=== PATIENT | female | born 1985 | race Caucasian/White ===

== ENCOUNTER 2017-12-07 10:49 | Inpatient (IN) | payer BC ==
[2017-12-07] MEDS ORDERED: Ringers Lactate 1,000 ML IV PRN (11:04)
[2017-12-07] MEDS ORDERED: OXYTOCIN/LR 20 UNIT/1,000 ML BAG IV SCH ×2 (12:00→19:00)
[2017-12-07] MEDS ORDERED: Ringers Lactate 1,000 ML IV SCH (12:00)
[2017-12-07] MEDS ORDERED: BUTORPHANOL 1 MG/ML INJ IV ONE (12:18)
[2017-12-07] MEDS ORDERED: PROMETHAZINE 25 MG/ML VIAL IV PRN (12:19)
[2017-12-07 12:54] LABS: RPR Titer ND
[2017-12-07 13:01] LABS: Absolute Lymphocytes (CBC) 1.8 K/uL (0.7-4.9); Absolute Monocytes 0.5 K/uL (0.1-1.3); Absolute Neutrophil 5.6 K/uL (1.8-8.0); Basophils % 0.5 % (0-1.3); Eosinophils % 0.4 % (0-4.4); Hematocrit 35.7 % (36.0-45.0); Lymphocytes % 22.1 % (15.3-44.8); MCH 30.3 pg (27.0-35.0); MCV 88.4 fL (80-100); MPV 9.7 fL (7.6-11.3); Monocytes % 6.4 % (3.3-12.3); RBC Red Blood Cell Count 4.04 M/uL (3.86-4.86)
[2017-12-07 13:12] LABS: Urine Appearance CLOUDY; Urine Blood NEGATIVE (NEG); Urine Color DK YELLOW; Urine Glucose NEGATIVE (NEG); Urine Protein 1+ (NEG); Urine pH 6.5 (5.0-7.0)
[2017-12-07 13:19] VITALS: BMI 35.5
[2017-12-07 13:20] LABS: Urine Bilirubin NEGATIVE (NEG); Urine Microscopic Reflex ORDER UMIC
[2017-12-07 13:46] LABS: Calcium Oxalate Crystals- Ur MODERATE (NONE SEEN); Urine Bacteria <20 /HPF (<20); Urine Culture Reflex Order REFLEXED; Urine RBC <5 /HPF (NONE SEEN)
[2017-12-07] MEDS ORDERED: FENTANYL/BUPIVACAINE/NS/PF 200 MCG/100 ML BAG EP PRN (13:54)
[2017-12-07] MEDS ORDERED: BUPIVACAINE 0.25% PF 10 ML VIAL IV PRN (13:57)
[2017-12-07] MEDS ORDERED: FENTANYL CITR 100 MCG/2 ML IV ONE (14:00)
[2017-12-07] MEDS ORDERED: ROPIVACAINE HCL 20 ML ONE (14:16)
[2017-12-07] MEDS ORDERED: MAGNESIUM SULF/STERILE WATER 1,000 ML IV ONE (16:19)
[2017-12-07] MEDS ORDERED: LABETALOL HCL 100 MG/20 ML ONE (16:19)
[2017-12-07] MEDS ORDERED: LABETALOL 20 MG/4ML SYRINGE IV ONE (17:00)
[2017-12-07] MEDS ORDERED: MAGNESIUM SULF/STERILE WATER 1,000 ML IV SCH ×2 (17:00→19:00)
[2017-12-07] MEDS ORDERED: CARBOPROST TROME 250 MCG/ML IM ONE (17:50)
[2017-12-07] MEDS ORDERED: LIDOCAINE 2% INJ, 20 mL 0 ML ONE (17:50)
[2017-12-07] MEDS ORDERED: CARBOPROST TROME 250 MCG/ML IM PRN (18:22)
[2017-12-07] MEDS ORDERED: ONDANSETRON 4 MG (ODT) TAB PO PRN (18:22)
--- NOTE | 2017-12-07 18:24 | PREOPHP ---
Date of Admission: 12/07/2017 History Of Present Illness: Ms. Harding is a 32-year-old female, 2, para 1-0 -0-1, at 37 weeks gestation. She is admitted for induction of labor secondary to 37 week , gestational diabetes, and -induced hypertension. She was noted to have a blood pressure of 160/105 in the office with repeat after resting 157/88. She has been followed over the last 2-3 week s with increasing blood pressure and had been placed on rest and stopped working because of this and being monitored through Labor and Delivery as well as our office because of worsening PIH. She will be admitted for induction. She has had problems with a headache recently. She denies any visual danica nges. She denies any abdominal pain other than some contractions. Past Medical History: Please see record. Family History: Please see record. Review of Systems: She denies recent nausea or vomiting. She denies any breast lumps. Infant has been active. She den ies any vaginal bleeding or spotting or urine symptoms or bowel issues. Physical Examination: General: Reveals female in no apparent distress. Neck: Supple without adenopathy or thyromegaly. Lungs: Clear. Cardiac: Regular rate and rhythm without murmurs. Breasts: Not examined. Abdomen: Shows 37 cm fundal height, vertex presentation. heart tone is well heard. Pelvic: Cervix noted to be 3 cm, 60% effaced, vertex at -1 to -2 station. Extremities: Trace to 1+ lower extremity edema. Impression: A 37 weeks , gestational diabetes, and -induced hypertension. Plan: The patient will be admitted for delivery. SAY/LEE Voice ID: [id number]
--- NOTE | 2017-12-07 18:28 | P.BOP ---
Preoperative diagnosis: 37 wk preg, GDM, PIH Postoperative diagnosis: same Primary procedure: SCVD viable female infant Secondary procedure: repair first degree perineal laceration Estimated blood loss: Less than 300ml. Transferred to: Other (272) Condition: Good
[2017-12-07 22:36] LABS: RPR (Rapid Plasma Reagin) NON-REACT (NON-REACT)
[2017-12-07] MEDS: Oxycodone HCl/Acetaminophen 1 TAB TAB PO PRN (22:50)
[2017-12-08] MEDS: Oxycodone HCl/Acetaminophen 1 TAB TAB PO PRN ×4 (03:38→20:20)
[2017-12-08 05:34] LABS: Absolute Lymphocytes (CBC) 2.9 K/uL (0.7-4.9); Absolute Monocytes 0.9 K/uL (0.1-1.3); Absolute Neutrophil 8.4 K/uL (1.8-8.0); Basophils % 0.4 % (0-1.3); Eosinophils % 0.4 % (0-4.4); Hematocrit 36.5 % (36.0-45.0); Lymphocytes % 23.8 % (15.3-44.8); MCH 30.2 pg (27.0-35.0); MCV 89.5 fL (80-100); MPV 10.2 fL (7.6-11.3); Monocytes % 7.2 % (3.3-12.3); RBC Red Blood Cell Count 4.08 M/uL (3.86-4.86)
[2017-12-08] MEDS ORDERED: LABETALOL 20 MG/4ML SYRINGE IV ONE ×2 (15:09→16:00)
--- NOTE | 2017-12-08 15:25 | OP ---
Surgeon: Scott Burns MD Ms. Harding is a 32-year-old, , female, 2, para 1-0-0-1 at 37 weeks gestation, admitted for induction of labor secondary to 37 week , -induced hypertension, and gestational diabetes. She was noted to be 3 cm on admission, and after artificial rupture of membran es and Pitocin induction of labor, she had an epidural catheter placed. She had a first stage of lab or of approximately 4 hours, second stage of labor of 19 minutes. She delivered by spontaneous contr olled vaginal delivery an 8 pounds 3 ounce female infant. Cord around the neck x1 was noted. The in [place] delivered over a first degree perineal laceration, and after delayed cord clamping. The cord wa s clamped, cut, and the placed on mother's abdomen. The cord blood was obtained. The placent a was spontaneously expelled. Perineal laceration was repaired in the usual fashion with 3-0 Vicryl suture. The patient had epidural catheter placed early in her course of labor and received excellent benefit from this. Estimated total blood loss was less than 300 cc. The patient was placed on magn esium sulfate during her labor course and received 120 mg dose of labetalol IV for control of her blo od pressure. SAY/LEE Voice ID: [id number] Report ID: [id number]
[2017-12-08] MEDS: LABETALOL HCL 100 MG TAB PO SCH (16:15)
[2017-12-08] MEDS ORDERED: LABETALOL HCL 100 MG TAB ONE (16:15)
--- NOTE | 2017-12-08 16:15 | P.PN ---
Date of Service: 12/08/17 S-No headache, abdomen feels better. O-BP remains high, worse when sitting, platelet ct this am plus or minus stable , urine output excellent at 2-300ml/hr, no protein in urine since last night A-Hypertension P-Begin po Labetalol. November d/c Mg this evening since all but bp resolved.
[2017-12-08] MEDS ORDERED: Ringers Lactate 1,000 ML IV SCH (22:00)
[2017-12-09] MEDS: LABETALOL HCL 100 MG TAB PO SCH (04:20)
[2017-12-09 07:49] VITALS: BP 138/80; TEMP 98.1
[2017-12-09] MEDS: Oxycodone HCl/Acetaminophen 1 TAB TAB PO PRN (08:17)
[2017-12-09 13:31] LABS: HBsAG Nonreactive (Nonreactive)
== END 2017-12-09 11:10 | disposition home or self-care (01) | DRG 775 ==
LOC: 2ND-WC 12:13
PROVIDERS: ADMIT Specialist; ATTEND Specialist
PROC: 10E0XZZ Delivery of Products of Conception, External Approach (ICD-10-PCS; principal; 2017-12-07)
PROC: 10907ZC Drainage of Amniotic Fluid, Therapeutic from Products of Conception, Via Natural or Artificial Opening (ICD-10-PCS; 2017-12-07)
PROC: 0HQ9XZZ Repair Perineum Skin, External Approach (ICD-10-PCS; 2017-12-07)
DX: O13.4 Gestational [pregnancy-induced] hypertension without significant proteinuria, complicating childbirth (principal); O24.429 Gestational diabetes mellitus in childbirth, unspecified control; O69.81X0 Labor and delivery complicated by cord around neck, without compression, not applicable or unspecified; O70.0 First degree perineal laceration during delivery; Z3A.37 37 weeks gestation of pregnancy; Z37.0 Single live birth
CPT/HCPCS: 36415; 81003; 81015; 83735; 85025; 86592; 86901; 87086; 87088; 87340; J2590; J3010; J3475

== ENCOUNTER 2020-06-03 06:39 | Inpatient (IN) | payer BC ==
--- OUTSIDE RECORDS SUMMARY | 2020-06-03 06:41 | XMS REPORT | Continuity of Care Document ---
:1985 Author Organization [facility] t Address [address] [place] [address] Care Team Providers Name Role Phone Unavailable Unavailable Unavailable Payers Payer Name Policy Type Policy Number Effective Date Expiration Date S ource Problems This patient has no known problems. Allergies, Adverse Reactions, Alerts Allergy Allergy Status Severity Reaction(s) Onset Inactive Treating Comm ents Source Name Type Date Date Clinician [place] DA Active U 2018-07 [facility] ins 0-21 Clear 00:00: [address] Medications This patient has no known medications. Procedures This patient has no known procedures. Results Test Description Test Time Test Comments Results Result Comments Source COMPREHENSIVE METABOLIC PANEL 2019-05-02 04:29:00 Test Item Value Reference Range Interpretation Comme nts SODIUM (test code = NA) 141 mmol/L 134-147 N POTASSIUM (test code = K) 3.8 mmol/L 3.4-5.0 N CHLORIDE (test code = CL) 109 mmol/L 100-108 H CARBON DIOXIDE (test code = CO2) 26 mmol/L 21-32 N ANION GAP (test code = GAP) 6.0 GAP calc 4.0-15.0 N GLUCOSE (test code = GLU) 113 MG/DL 70-110 H BLOOD UREA NITROGEN (test code = BUN) 12 MG/DL 7-18 N GLOMERULAR FILTRATION RATE (test code = GFR) >=60 max estimate estG FR >60 CREATININE (test code = CREAT) 0.7 MG/DL 0.6-1.0 N TOTAL PROTEIN (test code = PROT) 6.7 G/DL 6.4-8.2 N ALBUMIN (test code = ALB) 3.5 G/DL 3.4-5.0 N GLOBULIN (test code = GLOB) 3.2 GM/dL ALBUMIN/GLOBULIN RATIO (test code = A/G) 1.1 RATIO 1.2-2.2 L CALCIUM (test code = CA) 8.3 MG/DL 8.5-10.1 L BILIRUBIN TOTAL (test code = BILT) 0.10 MG/DL 0.2-1.2 L SGOT/AST (test code = AST) 12 Unit/L 15-37 L SGPT/ALT (test code = ALT) 22 Unit/L 12-78 N ALKALINE PHOSPHATASE TOTAL (test code = ALKP) 64 Unit/L 45-117 N [id number] 04:29:00 Test Item Value Reference Range Interpretation Comments PHOSPHOROUS (test code = PHOS) 3.9 MG/DL 2.5-4.9 N [id number] 04:29:00 Test Item Value Reference Range Interpretation Comments MAGNESIUM (test code = MAG) 1.8 MG/DL 1.8-2.4 N T4 [id number] 04:29:00 Test Item Value Reference Range Interpretation Comments T4 FREE (test code = T4F) 0.91 NG/DL 0.89-1.76 N THYROID STIMULATING [id number] 04:29:00 Test Item Value Reference Range Interpretation Comments THYROID STIMULATING HORMONE 3.020 mcIU/ML 0.340-4.820 N (test code = TSH) [id number] 03:32:00 Test Item Value Reference Range Interpretation Comments TROPONIN-I (test < 0.015 NG/ML 0.000-0.045 N Negative: </= 0.045 code = TROPI) Positive: >/= 0.046 Correlation wit h serial results, other cardiac markers, and cl inical findings is nec essary to determine the c linical significance of this result. Quantit ative results using d ifferent methodologies s hould not be compared to one another as nume rical results may dara yby method. Completed by Nursing: NO- XR CHEST 1 [id number] 01:42:00 Name: MARINA JASSO [place] : 1985 Age/S: 34 / F [id number] [place] Unit #: [id number] Loc: [place] [address] Phys: Clement Callejas MD Acct: [id number] Dis Date: Status: ADM IN PHONE #: [phone] Exam Date: 05/02/2019 0135 FAX #: Reason: PALPITATIONS EXAMS: CPT: [id number] XR CHEST 1 V 65177 Fluoro Time: DAP (Gy m2): Air Kerma (mGy): LOCATION: Q15 HISTORY: 34-year-old female who presents with palpitations. COMMENT: A frontal chest radiog raph was obtained at the bedside at 1:27 a.m. The lungs are clear and well-aerated. The cardiac silhouette, elvis, and mediastinum are within normal limits. The skeleton is intact, and the surrounding soft tissues are unremarkable. Cardiac monitoring leads are present. IMPRESSION: Unremarkable portable examination of the chest. at 0142 Reported and signed by: Chavez Gorman M.D. CC: Evy CR; Clement Callejas MD PAGE 1 Signed Report Name: MARINA JASSO [place] : 1985 Age/S: 34 / F [id number] [place] [address] Unit #: [id number] Loc: [place] [address] Phys: Clement Callejas MD Acct: [id number] Dis Date: Status: ADM IN PHONE #: [phone] Exam Date: 05/02/2019 0135 FAX #: Reason: PALPITATIONS EXAMS: CPT: [id number] XR CHEST 1 V 19782 Fluoro Time: DAP (Gy m2): Air Kerma (mGy): <Continued> Technologist: Rodney Garcia RT(R); Ry Kincaid RT(R)(CT) Trnscb Date/Time: 05/02/2019(014) [id number] Orig Print D/T: S: 05/02/2019 (014) PAGE 2 Signed [id number] 00:22:00 Test Item Value Reference Range Interpretation Comments TROPONIN-I (test < 0.015 NG/ML 0.000-0.045 N Negative: </= 0.045 code = TROPI) Positive: >/= 0.046 Correlation wit h serial results, other cardiac markers, and cl inical findings is nec essary to determine the c linical significance of this result. Quantit ative results using d ifferent methodologies s hould not be compared to one another as nume rical results may dara yby method. Completed by Nursing: NO
--- NOTE | 2020-06-03 07:38 | P.PN ---
Date of Service: 06/03/20 AROM by placement of FSE, reactive FHT's, clear fluid noted. +SARS, will mask and gown all contacts. Mask on when others in room
[2020-06-03] MEDS ORDERED: Ringers Lactate 1,000 ML IV PRN (08:26)
[2020-06-03] MEDS ORDERED: BUTORPHANOL 1 MG/ML INJ IV PRN (08:26)
[2020-06-03] MEDS ORDERED: CARBOPROST TROME 250 MCG/ML IM PRN ×2 (08:26→13:02)
[2020-06-03] MEDS ORDERED: METHYLERGONOVINE 0.2MG/ML AMP IM PRN (08:26)
[2020-06-03] MEDS ORDERED: Ringers Lactate 1,000 ML IV SCH (09:00)
[2020-06-03] MEDS ORDERED: OXYTOCIN/LR 20 UNITS/1,000 ML BAG IV SCH (09:00)
[2020-06-03 09:26] LABS: Urine Appearance CLOUDY; Urine Bilirubin NEGATIVE (NEG); Urine Blood NEGATIVE (NEG); Urine Color YELLOW; Urine Glucose NEGATIVE (NEG); Urine Protein TRACE (NEG); Urine Specific Gravity 1.025 (1.005-1.030)
[2020-06-03 09:33] LABS: Urine Microscopic Reflex ORDER UMIC
[2020-06-03 09:36] LABS: Absolute Lymphocytes (CBC) 1.4 K/uL (0.7-4.9); Basophils % 0.4 % (0-1.3); Hematocrit 33.8 % (36.0-45.0); Lymphocytes % 20.6 % (15.3-44.8); MPV 10.5 fL (7.6-11.3); RBC Red Blood Cell Count 3.82 M/uL (3.86-4.86)
[2020-06-03 09:41] LABS: Urine Bacteria >50 /HPF (<20); Urine RBC <5 /HPF (NONE SEEN)
[2020-06-03] MEDS ORDERED: FENTANYL CITR 100 MCG/2 ML IV ONE (10:23)
[2020-06-03] MEDS ORDERED: BUPIVACAINE 0.25% PF 10 ML VIAL IJ PRN (10:23)
[2020-06-03] MEDS ORDERED: FENTANYL/BUPIVACAINE/NS/PF 200 MCG/100 ML BAG EP PRN (10:23)
[2020-06-03 12:22] VITALS: BMI 36.3
[2020-06-03] MEDS ORDERED: LIDOCAINE 1% MPF 30 ML VIAL ONE (12:50)
[2020-06-03] MEDS ORDERED: OXYTOCIN/LR 20 UNIT/1,000 ML BAG IV SCH (13:00)
[2020-06-03] MEDS ORDERED: ONDANSETRON 4 MG (ODT) TAB PO PRN (13:02)
[2020-06-03] MEDS ORDERED: ACETAMINOPHEN 500 MG TAB PO PRN (13:02)
--- NOTE | 2020-06-03 13:06 | P.BOP ---
Preoperative diagnosis: 38 wk , chronic htn. Postoperative diagnosis: same, delivery viable female infant Primary procedure: SCVD Secondary procedure: repair first degree perineal laceration Estimated blood loss: 100ml Anesthesia: epidural Complications: None Complications: Positive Covid Transferred to: Other (279) Condition: Good
[2020-06-03] MEDS: IBUPROFEN 600 MG TAB PO PRN (20:45)
[2020-06-03 22:51] LABS: RPR (Rapid Plasma Reagin) NON-REACT (NON-REACT)
[2020-06-04] MEDS ORDERED: Ringers Lactate 1,000 ML IV ONE (03:36)
[2020-06-04] MEDS: IBUPROFEN 600 MG TAB PO PRN ×3 (04:45→17:00)
--- NOTE | 2020-06-04 07:15 | P.PN ---
Date of Service: 06/04/20 No complaints, daughter with a little breathing difficulty with retractions, on nasal 02. Will get platelet ct. on mother's specimen drawn this am. Hct. stable. Will plan on keeping patient until tomorrow to monitor bp/platelets/baby condition. Discussed with pt. and .
[2020-06-04 07:34] LABS: MPV 10.4 fL (7.6-11.3)
[2020-06-04 08:01] LABS: Platelet Estimate ADEQ
[2020-06-04] MEDS ORDERED: METOPROLOL XL 50 MG TAB PO SCH (09:00)
--- NOTE | 2020-06-04 09:52 | PREOPHP ---
Date of Admission: 06/03/2020 History Of Present Illness: Ambar is a 35-year-old female, 4, para 2-0-1- 2 who will be 38 weeks gestation when admitted for induction of labor. She has been induced because of chronic hypertension, prior -induced hypertension x2 with prior pregnancies. She has bee n seen by me during this early , had been placed on baby aspirin from approximately 16 weeks to 36 weeks to help prevent recurrent -induced hypertension. She is admitted for induction of labor and delivery of the . Past Medical History: Please see record. Family History: Please see record. Review of Systems: She reports no recent cough, cold, fever, or chills. No recent nausea or vomiting. No breast knots or lumps. No bowel or bladder issues. Physical Examination: Neck: Supple without adenopathy or thyromegaly. Lungs: Clear. Cardiac: Regular rate and rhythm without murmurs. Breasts: Not examined. Abdomen: 36 cm fundal height. heart tones well heard in lower midline. Vertex presentation o n palpation. Pelvic: Cervix noted to be 2+ to 3 cm dilated, 50% effaced, vertex -1 to -2 station. Extremities: No cyanosis, clubbing, or edema. Vital Signs: Blood pressure today is 130/80. Laboratory Data: There is no protein or sugar on her urine dip test. Impression: 38-week , favorable cervix, prior -induced hypertension x2, chronic hy pertension. Plan: The patient will be admitted for induction of labor. Risks and benefits are discussed. She h as signed operative permit in my presence. SAY/LEE Voice ID: [id number]
[2020-06-05] MEDS: IBUPROFEN 600 MG TAB PO PRN
[2020-06-05 07:53] VITALS: BP 138/77; TEMP 97.6
[2020-06-06 04:52] LABS: HBsAG Nonreactive (Nonreactive)
--- NOTE | 2020-06-07 15:43 | DS ---
Date of Discharge: 06/05/2020 Hospital Course: Ms. Harding is a 35-year-old, , female, 4, para 2-0-1-2 at 3 8 weeks gestation, admitted for induction of labor secondary to chronic hypertension, prior -induced hypertension x2. She had an uneventful labor and delivery and delivered a viable male infan t with epidural anesthesia. She was dismissed on the second day, ambulatory, on a select diet with routine post vaginal delivery, activity restrictions, to be seen back in my office in [address] [place] [address]. Hospital stay was complicated by a positive COVID screening despite the patient being asymptomat ic. Other lab work included an admission hemoglobin and hematocrit of 11.9 and 33.8, dismissal of 33 .9, platelet count on admission was 109,000, but repeat the following day was 129,000, so there was n o significant decrease. Urine specimen appeared to be contaminated. There was only trace protein in her urine. RPR is nonreactive. Hepatitis B screen pending. She is dismissed to be seen back in my office in 6 weeks to monitor blood pressure at home, to report any persistent elevation. She was di smissed to continue taking metoprolol. She was on antepartum and to take her iron and vitam ins. MPG/MODL Voice ID: [id number] Report ID: [id number]
--- NOTE | 2020-07-08 06:09 | OP ---
Surgeon: Scott Burns MD Ms. Harding is a 35-year-old female, admitted at 39 weeks gestation for elective induction se condary to term , history of chronic hypertension. She had a first stage of labor 5 hours, second stage of labor 15 minutes delivered by spontaneous controlled vaginal delivery. An 8 pounds 4 ounces female , 8 and 9 after delayed cord clamping. The cord was clamped, cut, and inf ant placed on mother's upper abdomen. Cord blood was obtained. The placenta was spontaneously expel led and appeared to be intact. Intrauterine examination revealed no retained placental fragments. S he delivered with epidural anesthesia. Estimated total blood loss was less than 200 cc. SAY/LEE Voice ID: [id number] Report ID: [id number]
== END 2020-06-05 08:20 | disposition home or self-care (01) | DRG 805 ==
LOC: 2ND-WC 06:39
PROVIDERS: ADMIT Specialist; ATTEND Specialist
PROC: 10907ZC Drainage of Amniotic Fluid, Therapeutic from Products of Conception, Via Natural or Artificial Opening (ICD-10-PCS; principal; 2020-06-03)
PROC: 10E0XZZ Delivery of Products of Conception, External Approach (ICD-10-PCS; 2020-06-03)
PROC: 3E033VJ Introduction of Other Hormone into Peripheral Vein, Percutaneous Approach (ICD-10-PCS; 2020-06-03)
PROC: 4A1H7CZ Monitoring of Products of Conception, Cardiac Rate, Via Natural or Artificial Opening (ICD-10-PCS; 2020-06-03)
PROC: 10H073Z Insertion of Monitoring Electrode into Products of Conception, Via Natural or Artificial Opening (ICD-10-PCS; 2020-06-03)
PROC: 0HQ9XZZ Repair Perineum Skin, External Approach (ICD-10-PCS; 2020-06-03)
DX: O98.52 Other viral diseases complicating childbirth (principal); U07.1 COVID-19; Z37.0 Single live birth; O13.4 Gestational [pregnancy-induced] hypertension without significant proteinuria, complicating childbirth; O70.0 First degree perineal laceration during delivery; Z3A.38 38 weeks gestation of pregnancy
CPT/HCPCS: 36415; 81003; 81015; 85014; 85025; 85049; 86592; 86901; 87340; J0595; J2210; J2590; J3010; J7120; U0003

== ENCOUNTER 2021-10-04 08:26 | Emergency (ER) | payer BC ==
--- OUTSIDE RECORDS SUMMARY | 2021-10-04 08:30 | XMS REPORT | Continuity of Care Document ---
:1985 Author Organization [facility] t Address [address] [place] [address] Dr. Gabriel. [address] [place] [address] Care Team Providers Name Role Phone Kimberly Leroy MD Primary Care Physician EVELYN MARTELL Attending Clinician Unavailable Evelyn Martell MD Attending Clinician 2, Lab Attending Clinician Unavailable LAB90 Attending Clinician Unavailable Kimberly Leroy MD Attending Clinician Mata Attending Clinician Unavailable Mata Admitting Clinician Unavailable Payers Payer Name Policy Type Policy Number Effective Date Expiration Date S ource [employer] - [id number] 2020 00:00:00 OUT OF STATE BCBS 2 [id number] 2021 00:00:00 Problems Condition Condition Condition Status Onset Resolution Last Treating Co mments Source Name Details Category Date Date Treatment Clinician Date No known No known Disease Unive rs active active ity of problems problems [facility] Allergies, Adverse Reactions, Alerts Allergy Allergy Status Severity Reaction(s) Onset Inactive Treating Comm ents Source Name Type Date Date Clinician Penicill Propensi Active 2020-07 Patient Kelse y ins ty to 2-16 states Seybold adverse 00:00: her Mom reaction 00 is s allergic. She has never had a reaction Penicill DA Active U 2018-07 [facility] ins 0-21 Clear 00:00: [place] 00 [facility] NO KNOWN Drug Active Univers ALLERGIE Class ity of S [facility] Social History Social Habit Start Date Stop Date Quantity Comments Source History SDOH University o f Alcohol Frequency [place] [facility] History SDOH University o f Alcohol Std [place] [facility] Drinks [facility] History SDOH University o f Alcohol Binge [place] [facility] ASSERTION [facility] Exposure to Not sure University SARS-CoV-2 [facility] (event) Branch Alcohol intake 2021-07-10 2021-07-10 Ex-drinker [place] of 00:00:00 00:00:00 (finding) [facility] Alcohol Comment 2021-07-10 2021-07-10 occasional before Un iversity of 00:00:00 00:00:00 finding out was [facility] Sex Assigned At [birth year] Universit y of 00:00:00 00:00:00 [facility] Smoking Status Start Date Stop Date Source Never smoker [facility] Medications Ordered Filled Start Stop Current Ordering Indication Dosage Frequency Signature Comments Components Source Medication Medication Date Date Medication? Clinician (SIG) Name Name metoprolol 2020-07 Yes 50mg Take 50 mg U nivers succinate 2-18 by mouth it[place] of [place] 50 mg 24 [place] [facility] metoprolol 2020-07 Yes 50mg Take 50 mg U nivers succinate 2-18 by mouth ity of XL 50 mg 24 00:[place] [facility] metoprolol 2020-07 Yes 50mg Take 50 mg U nivers succinate 2-18 by mouth ity of XL 50 mg 24 00:[place] [facility] metoprolol 2020-07 Yes 50mg Take 50 mg U nivers succinate 2-18 by mouth ity of XL 50 mg 24 00:[place] [facility] Nitrofurant 2020-07 Yes [id number] 100mg Take 1 Iris oin Monohyd 2-16 capsule Seybo ld Macro 100 00:00: (100 mg MG oral 00 total) by Capsule mouth 2 times daily Naproxen 2020-07 Yes [id number] 500mg Take 1 K elsey 500 MG oral 2-16 tablet Seybol d Tablet 00:00: (500 mg 00 total) by mouth 2 times daily (with meals) Metoprolol 2020-07 Yes 50mg Take 50 mg K elsey Succinate 1-22 by mouth Seybol d 50 MG oral 00:00: daily TABLET SR 00 24 HR Immunizations Ordered Filled Immunization Date Status Comments Sourc e Immunization Name Name Influenza Virus 2021-07-10 Completed Universit y of Vaccine Quad IM, 00:00:00 [place] [facility] Preserv and ABX Branch Free 6 MO-64 YRS Influenza Virus 2021-07-10 Completed Universit y of Vaccine [place] IM, 00:00:00 [place] [facility] Preserv and ABX Branch Free 6 MO-64 YRS Influenza Virus 2021-07-10 Completed Universit y of Vaccine Quad IM, 00:00:00 [place] [facility] Preserv and ABX Branch Free 6 MO-64 YRS Influenza Virus 2021-07-10 Completed Universit y of Vaccine Quad IM, 00:00:00 [place] [facility] [place] Preserv and ABX Branch Free 6 MO-64 YRS Vital Signs Vital Name Observation Time Observation Value Comments Source Systolic blood pressure 2021-06-26 20:17:00 124 mm[Hg] Iris nAtony Diastolic blood 2021-06-26 20:17:00 78 mm[Hg] Jc Antnoy pressure Heart rate 2021-06-26 20:17:00 92 /min Iris banerjee Body temperature 2021-06-26 20:17:00 37.06 Denia Eva Antony Respiratory rate 2021-06-26 20:17:00 12 /min Eva Antony Body height 2021-06-26 20:17:00 180.3 cm Iris banerjee Body weight 2021-06-26 20:17:00 100.699 kg Iris banerjee BMI 2021-06-26 20:17:00 30.96 kg/m2 Iris banerjee Procedures Procedure Date / Time Performed Performing Clinician [facility] e CBC WITH DIFF 2021-07-10 21:48:00 Lg Martell [place] o f [facility] TOTAL BETA HCG ASSAY 2021-07-10 21:48:00 Lg Martell [facility] LS URINE 2021-06-26 21:19:00 Gianna Leroy Se TEST-LAB TEST Somogyi URINALYSIS NONAUTO W/O 2021-06-26 20:49:00 Gianna Leroy y Cassia SCOPE Somogyi Encounters Start End Encounter Admission Attending Care Care Encounter Source Date/Time Date/Time Type Type Clinicians Facility Department ID 2021-07-25 2021-07-25 Outpatient R LG MARTELL [facility] [id number] Univers 10:15:00 10:15:00 ity [facility] 2021-07-22 2021-07-22 Telephone Lg Martell [facility] [id number] Univers 00:00:00 00:00:00 Evelyn MCCLELLAN [id number] i ty [facility] 4.2.7.2.686 [place] [id number] Wy dical NAL [address] [facility] 2021-07-16 2021-07-16 Outpatient R LG MARTELL [facility] [id number] Univers 16:15:00 16:15:00 ity [facility] 2021-07-16 2021-07-16 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 2, Adc Lab [facility] [id number] Univers 16:15:00 16:15:00 Visit Joan Martelltremayne MCCLELLAN [id number] ity [facility] [id number] [id number] Wy dical NAL 353 [facility] 2021-07-14 2021-07-14 Outpatient R LG MARTELL [facility] [id number] Univers 16:30:00 16:30:00 ity [facility] 2021-07-14 2021-07-14 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 15:30:00 15:41:38 Visit Lg Martell Evelyn MCCLELLAN [id number] ity [facility] 4.2.7.2.686 Kietted jeong MIK [id number] Wy dical [address] 2021-07-10 2021-07-10 Outpatient R LG MARTELL [facility] [id number] [facility] 14:00:00 15:32:45 ity [facility] 2021-06-26 2021-06-26 Outpatient LAB90 IRIS KAUFFMAN [id number] Iris 15:30:00 15:30:00 Seybol d 2021-06-26 2021-06-26 Office Kelvin Leroy [id number] Iris 14:30:00 15:00:00 Visit Gianna Valderrama [id number] Se charmaine Racheldionte 1.2.7.2.686 [id number] 2020-05-29 2020-05-29 Outpatient Mata [facility]G [facility]G [id number] [place] 02:24:00 02:24:00 [facility] 2019-10-17 2019-10-17 Outpatient Mata MMG MMG [id number] [place] 12:52:00 12:52:00 [facility] Results Test Description Test Time Test Comments Results Result Comments Source HCG, QUANTITATIVE, 2021-07-10 23:23:35 Test Item Value Reference Range Interpretation Comme nts BETA HCG (test code = See_Comment [Auto mated message] The [id number]) system which ge nerated this result transmit jackie reference range : Non- fe male and male patients: <5 mIU/mL. The reference r denver was not used to interpr et this result as merline l/abnormal. MIL (test code = MIL) Gestational Age ?Range (mIU/mL) 1-10 ?Weeks ?[id number] Weeks ?72787-73110839-12 Weeks ?2134-53879262-46 Weeks ?7694-739255 Biotin has been reported to cause a negative bias, interpret results relative to patient's use of biotin. [facility] WITH [id number] 21:56:34 Test Item Value Reference Range Interpretation Comments WBC (test code = See_Comment [Automated 6690-2) message] The sy stem which generated this result transmitted reference range : 4.30 - 11.10 10*3/?L. The reference range was not used to interpret this result as normal/abnormal . RBC (test code = See_Comment [Automated 789-8) message] The sy stem which generated this result transmitted reference range : 3.93 - 5.25 10*6/?L. The reference range was not used to interpret this result as normal/abnormal . HGB (test code = 13.3 g/dL 11.6-15.0 718-7) HCT (test code = 38.6 % 35.7-45.2 4544-3) MCV (test code = 87.3 fL 80.6-95.5 787-2) MCH (test code = 30.1 pg 25.9-32.8 785-6) MCHC (test code = 34.5 g/dL 31.6-35.1 786-4) RDW-SD (test code = 37.5 fL 39.0-49.9 L 54171-3) RDW-CV (test code = 11.7 % 12.0-15.5 L 788-0) PLT (test code = See_Comment [Automated 777-3) message] The sy stem which generated this result transmitted reference range : 166 - 358 10*3/ ?L. The reference r denver was not used to interpret this result as normal/abnormal . MPV (test code = 10.7 fL 9.5-12.9 86494-9) NRBC/100 WBC (test See_Comment [Automat ed code = 9803381265) message] The system which generated this result transmitted reference range : 0.0 - 10.0 /100 WBCs. The refer ence range was not u sed to interpret th is result as normal/abnormal . NRBC x10^3 (test code <0.01 See_Comment [Auto mated = 7258279928) message] The s ystem which generated this result transmitted reference range : 10*3/?L. The reference range was not used to interpret this result as normal/abnormal . GRAN MAT (NEUT) % 59.0 % (test code = 770-8) IMM GRAN % (test code 0.50 % = 3505665018) LYMPH % (test code = 31.7 % 736-9) MONO % (test code = 6.0 % 5905-5) EOS % (test code = 2.0 % 713-8) BASO % (test code = 0.8 % 706-2) GRAN MAT x10^3(ANC) 5.09 10*3/uL 1.88-7.09 (test code = 4699153573) IMM GRAN x10^3 (test 0.04 10*3/uL 0.00-0.06 code = 8667026520) LYMPH x10^3 (test code 2.74 10*3/uL 1.32-3.29 = 731-0) MONO x10^3 (test code 0.52 10*3/uL 0.33-0.92 = 742-7) EOS x10^3 (test code = 0.17 10*3/uL 0.03-0.39 711-2) BASO x10^3 (test code 0.07 10*3/uL 0.01-0.07 = 704-7) Lab Interpretation Abnormal (test code = 28821-3) [facility] [id number] 21:21:53 Test Item Value Reference Range Interpretation Comments TEST (test code = 2106-3) Negative Iris SeyboldURINALYSIS NONAUTO W/O [id number] 20:49:00 Test Item Value Reference Range Interpretation Comments UD KETONES (test code = neg 5-160 012358) UD GLUCOSE (test code = neg 100-2000 888464) UD PROTEIN (test code = neg Trace - 2000 mg/dL 499428) UD LEUKOCYTES (test mod Trace - Large @ 2 code = 009509) min. UD NITRITE (test code = neg Neg. - Pos. @ 60 908268) sec. UD UROBILINOGEN (test 0.2 mg/dL 0.2-8 code = 849879) UD PH (test code = See_Comment [Automat ed 821149) message] The sy stem which generated this result transmitted reference range : 5.0 - 8.5 @ 60 sec.. The refer ence range was not u sed to interpret th is result as normal/abnormal . UD BLOOD (test code = neg Neg. - Large @ 60 298750) sec. UD SPECIFIC GRAVITY See_Comment [Automa jackie (test code = 506090) message ] The system which generated this result transmitted reference range : 1.000 - 1.030 @ 45 sec.. The refer ence range was not u sed to interpret th is result as normal/abnormal . UD BILIRUBIN (test code neg Neg. - Large @ 45 = 461678) sec. Lab Interpretation Abnormal (test code = 77951-1) Iris AntonyCOMPREHENSIVE METABOLIC [id number] 04:29:00 Test Item Value Reference Range Interpretation Comments SODIUM (test code = NA) 141 mmol/L 134-147 N POTASSIUM (test code = 3.8 mmol/L 3.4-5.0 N K) CHLORIDE (test code = 109 mmol/L 100-108 H CL) CARBON DIOXIDE (test 26 mmol/L 21-32 N code = CO2) ANION GAP (test code = 6.0 GAP calc 4.0-15.0 N GAP) GLUCOSE (test code = 113 MG/DL 70-110 H GLU) BLOOD UREA NITROGEN 12 MG/DL 7-18 N (test code = BUN) GLOMERULAR FILTRATION >=60 max estimate >60 RATE (test code = GFR) estGFR CREATININE (test code = 0.7 MG/DL 0.6-1.0 N CREAT) TOTAL PROTEIN (test code 6.7 G/DL 6.4-8.2 N = PROT) ALBUMIN (test code = 3.5 G/DL 3.4-5.0 N ALB) GLOBULIN (test code = 3.2 GM/dL GLOB) ALBUMIN/GLOBULIN RATIO 1.1 RATIO 1.2-2.2 L (test code = A/G) CALCIUM (test code = CA) 8.3 MG/DL 8.5-10.1 L BILIRUBIN TOTAL (test 0.10 MG/DL 0.2-1.2 L code = BILT) SGOT/AST (test code = 12 Unit/L 15-37 L AST) SGPT/ALT (test code = 22 Unit/L 12-78 N ALT) ALKALINE PHOSPHATASE 64 Unit/L 45-117 N TOTAL (test code = ALKP) [id number] 04:29:00 Test Item Value Reference Range Interpretation Comments PHOSPHOROUS (test code = PHOS) 3.9 MG/DL 2.5-4.9 N [id number] 04:29:00 Test Item Value Reference Range Interpretation Comments MAGNESIUM (test code = MAG) 1.8 MG/DL 1.8-2.4 N T4 [id number] 04:29:00 Test Item Value Reference Range Interpretation Comments T4 FREE (test code = T4F) 0.91 NG/DL 0.89-1.76 N THYROID STIMULATING [id number] 04:29:00 Test Item Value Reference Range Interpretation Comments THYROID STIMULATING HORMONE 3.020 mcIU/ML 0.340-4.820 N (test code = TSH) [id number] 03:32:00 Test Item Value Reference Range Interpretation [...] Completed by Nursing: NO- XR CHEST 1 [id number] 01:42:00 Name: MARINA JASSO [facility] : 1985 Age/S: 34 / F [address] Unit #: [id number] Loc: [place] [address] Phys: Clement Callejas MD Acct: [id number] Dis Date: Status: ADM IN PHONE #: [phone] Exam Date: 05/02/2019 0135 FAX #: Reason: PALPITATIONS EXAMS: CPT: [id number] XR CHEST 1 V 74443 Fluoro Time: DAP (Gy m2): Air Kerma [...] MD PAGE 1 Signed Report Name: MARINA JASS[place]land : 1985 Age/S: 34 / F [address] Unit #: [id number] Loc: [place] [address] Phys: Clement Callejas MD Acct: [id number] Dis Date: Status: ADM IN PHONE #: [phone] Exam Date: 05/02/2019 0135 FAX #: Reason: PALPITATIONS EXAMS: CPT: [id number] XR CHEST 1 V 52929 Fluoro Time: DAP (Gy m2): Air Kerma (mGy): <Continued> Technologist: Rodney Garcia RT(R); Ry Kincaid RT(R)(CT) Trnscb Date/Time: 05/02/2019(014) [email or web address] Orig Print D/T: S: 05/02/2019 (014) PAGE 2 Signed [id number] 00:22:00 Test Item Value Reference Range Interpretation [...]
[2021-10-04 09:10] LABS: Urine Blood Negative (Negative); Urine Glucose Negative (Negative); Urine Protein Negative (Negative)
[2021-10-04 09:32] LABS: Urine Bacteria 20-50 /HPF (<20); Urine RBC <5 /HPF (NONE SEEN)
[2021-10-04] MEDS ORDERED: ACETAMINOPHEN 325 MG TABLET ONE (10:26)
[2021-10-04] MEDS ORDERED: CEFTRIAXONE 1000 MG/VIAL ONE (10:42)
[2021-10-04] MEDS ORDERED: WATER FOR INJ,STERILE 10 ML ONE (10:43)
--- NOTE | 2021-10-04 11:10 | ER ---
Nurse's Notes [facility] Name: Ambar Harding Age: 36 yrs Sex: Female : 1985 Arrival Date: 10/04/2021 Time: 08:31 Bed 6 Private MD: Diagnosis: UTI/ Urinary tract infection, site not specified Presentation: 10/04 08:53 Chief complaint: Patient states: is approx 18 weeks , G5, P3, woke up with left iw flank pain, wraps around LLQ, pain worsens when taking a deep breath, sometimes has pain into her left lung. Coronavirus screen: At this time, the client does not indicate any symptoms associated with coronavirus-19. Ebola Screen: Patient negative for fever greater than or equal to 101.5 degrees Fahrenheit, and additional compatible Ebola Virus Disease symptoms Patient denies exposure to infectious person. Patient denies travel to an Ebola-affected area in the 21 days before illness onset. No symptoms or risks identified at this time. Initial Sepsis Screen: Does the patient meet any 2 criteria? HR > 90 bpm. Does the patient have a suspected source of infection? No. Patient's initial sepsis screen is negative. Risk Assessment: Do you want to hurt yourself or someone else? Patient reports no desire to harm self or others. Onset of symptoms was October 04, 2021. 08:53 Method Of Arrival: Ambulatory iw 08:53 Acuity: DEAN 3 iw Historical: - Allergies: 08:47 PENICILLINS; ph - Home Meds: 08:56 Vitamin Oral tab 1 tab once daily [Active]; aspirin 81 mg Oral tab daily iw [Active]; metoprolol tartrate 75 mg Oral tab once daily [Active]; - PMHx: 08:47 gestational diabetes; ph 08:56 mitral valve prolapse; iw - PSHx: 08:56 right knee; iw - Immunization history:: Client reports receiving the 1st dose of the Covid vaccine. - Social history:: Smoking status: Patient denies any tobacco usage or history of. Screenin:15 Abuse screen: Denies threats or abuse. Denies injuries from another. Nutritional ph screening: No deficits noted. Tuberculosis screening: No symptoms or risk factors identified. Fall Risk None identified. Assessment: 09:30 General: Appears in no apparent distress. Behavior is calm, cooperative, appropriate ph for age, Denies fever. 09:30 Pain: Complains of pain in left lower quadrant and left mid back. Neuro: Level of ph Consciousness is awake, alert, obeys commands, Oriented to person, place, time, situation. Cardiovascular: Capillary refill < 3 seconds in bilateral fingers Patient's skin is warm and dry. Respiratory: Airway is patent Respiratory effort is even, unlabored, Respiratory pattern is regular, symmetrical. GI: Abdomen is round Abd is soft X 4 quads. : Reports pain in left lower quadrant(s) in lower back with urination, urinary frequency. Derm: Skin is intact, is healthy with good turgor, Skin is pink, warm \T\ dry. Musculoskeletal: Circulation, motion, and sensation intact. Range of motion: intact in all extremities. 10:30 Reassessment: Patient appears in no apparent distress at this time. Patient and/or ph family updated on plan of care and expected duration. Pain level reassessed. Patient is alert, oriented x 3, equal unlabored respirations, skin warm/dry/pink. 11:26 Reassessment: Patient appears in no apparent distress at this time. Patient and/or ph family updated on plan of care and expected duration. Pain level reassessed. Patient is alert, oriented x 3, equal unlabored respirations, skin warm/dry/pink. D/C pending 15 minute shot time. Vital Signs: 08:53 BP 132 / 88; Pulse 112; Resp 18 S; Temp 96.9; Pulse Ox 99% on R/A; Weight 104.33 kg; iw Height 5 ft. 11 in. (180.34 cm); Pain 5/10; 10:00 BP 126 / 87; Pulse 101; Resp 18; Pulse Ox 98% on R/A; ph 11:00 BP 118 / 78; Pulse 91; Resp 16; Temp 97.9; Pulse Ox 100% on R/A; ph 12:00 BP 120 / 76; Pulse 88; Resp 16; Pulse Ox 98% on R/A; ph 08:53 Body Mass Index 32.08 (104.33 kg, 180.34 cm) iw Vitals: 10:32 Heart Tones 160 bpm. ph ED Course: 08:31 Patient arrived in ED. rg4 08:47 Rosalia Chisholm, STUART is Primary Nurse. ph 08:48 Fercho Palma NP is PHCP. pm1 08:48 Kraig Buck MD is Attending Physician. pm1 08:56 Triage completed. iw 08:56 Arm band placed on. iw 09:15 Patient has correct armband on for positive identification. Bed in low position. Call ph light in reach. Side rails up X 1. Pulse ox on. NIBP on. 09:15 Urine --Ancillary (enter results) Sent. 5 09:15 Urine Microscopic Only Sent. 5 09:17 Warm blanket given. 5 10:23 Urine Culture Sent. 5 12:17 No provider procedures requiring assistance completed. Patient did not have IV access ph during this emergency room visit. Administered Medications: 10:31 Drug: Tylenol 650 mg Route: PO; 6 11:26 Follow up: Response: No adverse reaction ph 11:26 Drug: Rocephin (cefTRIAXone) 1 grams Route: IM; Site: left deltoid; ph 13:00 Follow up: Response: No adverse reaction ph Outcome: 11:10 Discharge ordered by MD. pm1 12:17 Patient left the ED. ph 12:17 Discharged to home ambulatory. ph 12:17 Condition: good 12:17 Discharge instructions given to patient, Instructed on discharge instructions, follow up and referral plans. medication usage, Demonstrated understanding of instructions, follow-up care, medications, Prescriptions given X 1. Signatures: Rosemarie Quintanilla RN RN Rosalia Chisholm RN RN Fercho Palma NP AUTOMATIC EQUIPMENT TECHNICIAN pm1 Caitlyn Bañuelos 4 Qing [facility] Zulema Orona RN RN 6 Corrections: (The following items were deleted from the chart) 19:20 09:30 General: Appears in no apparent distress. Behavior is calm, cooperative, ph appropriate for age, ph
--- NOTE | 2021-10-04 11:10 | EDPHYS ---
Physician Documentation [facility] [place], [place] Name: Ambar Harding Age: 36 yrs Sex: Female : 1985 Arrival Date: 10/04/2021 Time: 08:31 Bed 6 Private MD: Kraig Vicente HPI: 10/04 09:17 This 36 yrs old Female presents to ER via Ambulatory with complaints of Back Pain, 18 pm1 Weeks . 09:17 The patient complains of pain in the left mid back. The pain radiates to the left lower pm1 quadrant. Onset: The symptoms/episode began/occurred today. Modifying factors: The symptoms are alleviated by nothing. the symptoms are aggravated by nothing. Associated signs and symptoms: The patient has no apparent associated signs or symptoms, Pertinent negatives: diarrhea, dysuria, fever, nausea, vomiting. Severity of pain: in the emergency department the pain is unchanged. The patient has not experienced similar symptoms in the past. The patient has not recently seen a physician, Patient with IUP ultrasound from her it trainer. Historical: - Allergies: 08:47 PENICILLINS; ph - Home Meds: 08:56 Vitamin Oral tab 1 tab once daily [Active]; aspirin 81 mg Oral tab daily iw [Active]; metoprolol tartrate 75 mg Oral tab once daily [Active]; - PMHx: 08:47 gestational diabetes; ph 08:56 mitral valve prolapse; iw - PSHx: 08:56 right knee; iw - Immunization history:: Client reports receiving the 1st dose of the Covid vaccine. - Social history:: Smoking status: Patient denies any tobacco usage or history of. ROS: 09:17 Constitutional: Negative for fever, chills, and weight loss, Cardiovascular: Negative pm1 for chest pain, palpitations, and edema, Respiratory: Negative for shortness of breath, cough, wheezing, and pleuritic chest pain. 09:17 : Negative for injury, bleeding, discharge, and swelling, MS/Extremity: Negative for injury and deformity, Skin: Negative for injury, rash, and discoloration, Neuro: Negative for headache, weakness, numbness, tingling, and seizure. 09:17 Abdomen/GI: Positive for of the left lower quadrant, Pain, Negative for nausea, vomiting, and diarrhea. 09:17 Back: Positive for flank pain, on the left. 09:17 All other systems are negative. Exam: 09:17 Constitutional: This is a well developed, well nourished patient who is awake, alert, pm1 and in no acute distress. Head/Face: Normocephalic, atraumatic. 09:17 Back: No spinal tenderness. No costovertebral tenderness. Full range of motion. Skin: Warm, dry with normal turgor. Normal color with no rashes, no lesions, and no evidence of cellulitis. MS/ Extremity: Pulses equal, no cyanosis. Neurovascular intact. Full, normal range of motion. 09:17 Eyes: Exam is negative for acute changes. 09:17 ENT: Exam is negative for acute changes, Mouth: no acute changes, Lips: normal, moist, Oral mucosa: normal, pink and intact, moist. 09:17 Cardiovascular: Exam negative for acute changes, Rate: normal, Rhythm: regular, Pulses: no pulse deficits are appreciated. 09:17 Respiratory: Exam negative for acute changes, respiratory distress, shortness of breath, Breath sounds: are clear throughout. 09:17 Abdomen/GI: Exam negative for acute changes, Inspection: abdomen appears normal, Palpation: abdomen is soft and non-tender, in all quadrants. 09:17 Neuro: Exam negative for acute changes, Orientation: is normal, Mentation: is normal, Motor: is normal, moves all fours. Vital Signs: 08:53 BP 132 / 88; Pulse 112; Resp 18 S; Temp 96.9; Pulse Ox 99% on R/A; Weight 104.33 kg; iw Height 5 ft. 11 in. (180.34 cm); Pain 5/10; 10:00 BP 126 / 87; Pulse 101; Resp 18; Pulse Ox 98% on R/A; ph 11:00 BP 118 / 78; Pulse 91; Resp 16; Temp 97.9; Pulse Ox 100% on R/A; ph 12:00 BP 120 / 76; Pulse 88; Resp 16; Pulse Ox 98% on R/A; ph 08:53 Body Mass Index 32.08 (104.33 kg, 180.34 cm) iw MDM: 08:48 Patient medically screened. pm1 09:17 ED course: Patient with fundal height approximately 2 cm below umbilicus. Patient with pm1 intrauterine ultrasound from her OB. 11:09 Data reviewed: vital signs. Data interpreted: Pulse oximetry: on room air is 99 %. pm1 Interpretation: normal. Counseling: I had a detailed discussion with the patient and/or guardian regarding: the historical points, exam findings, and any diagnostic results supporting the discharge/admit diagnosis, lab results, the need for outpatient follow up, to return to the emergency department if symptoms worsen or persist or if there are any questions or concerns that arise at home. 11:09 ED course: Offered patient x-ray. Patient does not have any symptoms of pneumonia. pm1 Negative for cough, fever, shortness of breath. Lower back pain does not appear to be related to pneumonia, therefore patient refused. Patient positive for UTI with urine micro. Left flank pain likely due to UTI. Will discharge patient home with antibiotics pending urine culture. 10/04 09:10 Order name: Urine Dipstick-Ancillary; Complete Time: 09:11 [facility] 10/04 09:10 Order name: Urine --Ancillary (enter results) eb 10/04 09:11 Order name: Urine Microscopic Only; Complete Time: 09:36 pm1 10/04 09:36 Order name: Urine Culture [facility] 10/04 09:17 Order name: FHT's; Complete Time: 10:32 pm1 Administered Medications: 10:31 Drug: Tylenol 650 mg Route: PO; jh6 11:26 Follow up: Response: No adverse reaction ph 11:26 Drug: Rocephin (cefTRIAXone) 1 grams Route: IM; Site: left deltoid; ph 13:00 Follow up: Response: No adverse reaction ph Disposition Summary: 10/04/21 11:10 Discharge Ordered Location: Home pm1 Problem: new pm1 Symptoms: have improved pm1 Condition: Stable pm1 Diagnosis - UTI/ Urinary tract infection, site not specified pm1 Followup: pm1 - With: Emergency Department - When: As needed - Reason: Worsening of condition Followup: pm1 - With: Private Physician - When: 2 - 3 days - Reason: Recheck today's complaints, Continuance of care, Re-evaluation by your physician Discharge Instructions: - Discharge Summary Sheet pm1 - and Urinary Tract Infection pm1 Forms: - Medication Reconciliation Form pm1 - Thank You Letter pm1 - Antibiotic Education pm1 - Prescription Opioid Use pm1 Prescriptions: - Amoxicillin 500 mg Oral Capsule - take 1 capsule by ORAL route every 8 hours for 10 days; 30 tablet; Refills: 0, pm1 Product Selection Permitted Addendum: 10/08/2021 07:03 Co-signature as Attending Physician, Kraig Buck MD I agree with the assessment and c evans plan of care. Signatures: Dispatcher [employer] Kraig Siddiqui MD MD cha Williams, Irene, RN STUART iw Rosalia Chisholm RN RN ph Marinas, Patrick, DIPESH INVESTMENT ACCOUNTING CLERK pm1 Zulema Orona RN RN jh6
[2021-10-04 12:22] VITALS: BP 132/88; TEMP 96.9; O2SAT 99
== END 2021-10-04 12:17 | disposition home or self-care (01) ==
LOC: ER 08:26
DX: O23.42 Unspecified infection of urinary tract in pregnancy, second trimester (principal); N39.0 Urinary tract infection, site not specified; O24.419 Gestational diabetes mellitus in pregnancy, unspecified control; Z3A.18 18 weeks gestation of pregnancy; Z79.82 Long term (current) use of aspirin; Z88.0 Allergy status to penicillin
CPT/HCPCS: 81003; 81015; 81025; 87086; 87088; 96372; 99284

== ENCOUNTER 2021-10-17 17:11 | Emergency (ER) | payer BC ==
--- OUTSIDE RECORDS SUMMARY | 2021-10-17 17:17 | XMS REPORT | Continuity of Care Document ---
:1985 Author Organization [facility] t Address [address] [place] [address] Care Team Providers Name Role Phone Kimberly Leroy MD Primary Care Physician EVELYN MARTELL Attending Clinician Unavailable Evelyn Martell MD Attending Clinician 2, Lab Attending Clinician Unavailable LAB90 Attending Clinician Unavailable Kimberly Leroy MD Attending Clinician Mata Attending Clinician Unavailable Mata Admitting Clinician Unavailable Payers Payer Name Policy Type Policy Number Effective Date Expiration Date S ource [employer] [place] - [id number] 2020 00:00:00 OUT OF STATE BCBS 2 [id number] 2021 00:00:00 Problems Condition Condition Condition Status Onset Resolution Last Treating Co mments Source Name Details Category Date Date Treatment Clinician Date No known No known Disease Unive rs active active ity of problems problems [facility] Allergies, Adverse Reactions, Alerts Allergy Allergy Status Severity Reaction(s) Onset Inactive Treating Comm ents Source Name Type Date Date Clinician Penicill Propensi Active 2020-07 Patient Kelse y ins ty to 2-16 states Seybold adverse 00:00: her Mom reaction 00 is s allergic. She has never had a reaction Penicill DA Active U 2018-07 [facility] ins 0-21 Clear 00:00: [place] [address] [place] [address] NO KNOWN Drug Active Univers ALLERGIE Class ity of S [facility] Social History Social Habit Start Date Stop Date Quantity Comments Source History SDOH University o f Alcohol Frequency [place] [facility] History SDSD University o f Alcohol Std [place] [facility] History SDSD University o f Alcohol Binge [place] [facility] Media ASSERTION [facility] Exposure to Not sure University SARS-CoV-2 [facility] (event) Branch Alcohol intake 2021-07-10 2021-07-10 Ex-drinker University 00:00:00 00:00:00 (finding) [facility] Alcohol Comment 2021-07-10 2021-07-10 occasional before Un iversity of 00:00:00 00:00:[address] [facility] Media Sex Assigned At [birth year] Universit y of 00:00:00 00:00:00 [facility] Smoking Status Start Date Stop Date Source Never smoker [facility] Medications Ordered Filled Start Stop Current Ordering Indication Dosage Frequency Signature Comments Components Source Medication Medication Date Date Medication? Clinician (SIG) Name Name metoprolol 2020-07 Yes 50mg Take 50 mg U nivers succinate 2-18 by mouth it[place] 50 mg 24 [place] [facility] metoprolol 2020-07 Yes 50mg Take 50 mg U nivers succinate 2-18 by mouth it[place] of [place] 50 mg 24 [place] [facility] metoprolol 2020-07 Yes 50mg Take 50 mg U nivers succinate 2-18 by mouth it[place] of XL 50 mg 24 [place] [facility] metoprolol 2020-07 Yes 50mg Take 50 mg U nivers succinate 2-18 by mouth ity of XL 50 mg 24 00:00[facility] Nitrofurant 2020-07 Yes [id number] 100mg Take 1 Iris oin Monohyd 2-16 capsule Seybo ld Macro 100 00:00: (100 mg MG oral 00 total) by Capsule mouth 2 times daily Naproxen 2020-07 Yes [id number] 500mg Take 1 K elsey 500 MG oral 2-16 tablet Seybol d Tablet 00:00: (500 mg 00 total) by mouth 2 times daily (with meals) Metoprolol 2020-07 Yes 50mg Take 50 mg K elsey Succinate 1-22 by mouth Seybol d 50 MG oral 00:00: daily TABLET SR 00 24 HR Immunizations Ordered Filled Immunization Date Status Comments Sour e Immunization Name Name Influenza Virus 2021-07-10 [...] blood pressure 2021-06-26 20:17:00 124 mm[Hg] Iris Seybold Diastolic blood 2021-06-26 20:17:00 78 mm[Hg] Jc y Seybold pressure Heart rate 2021-06-26 20:17:00 92 /min Iris banerjee Body temperature 2021-06-26 20:17:00 37.06 Denia Eva ey Seybold Respiratory rate 2021-06-26 20:17:00 12 /min Eva ey Seybold Body height 2021-06-26 20:17:00 180.3 cm Iris bernalbomargarita Body weight 2021-06-26 20:17:00 100.699 kg Iris S gabebomargarita BMI 2021-06-26 20:17:00 30.96 kg/m2 Iris banerjee Procedures Procedure Date / Time Performed Performing Clinician [facility] e CBC WITH DIFF 2021-07-10 21:48:00 Lg Martell [place] o [facility] TOTAL BETA HCG ASSAY 2021-07-10 21:48:00 Lg Martell [facility] LS URINE 2021-06-26 21:19:00 Gianna Leroy Se ybold TEST-LAB TEST Somogyi URINALYSIS NONAUTO W/O 2021-06-26 20:49:00 Gianna Leroy y Cassia SCOPE Somogyi Encounters Start End Encounter Admission Attending Care Care Encounter Source Date/Time Date/Time Type Type Clinicians Facility Department ID 2021-07-25 2021-07-25 Outpatient R LG MARTELL [facility] [id number] Univers 10:15:00 10:15:00 ity Formerly [facility] 2021-07-22 2021-07-22 Telephone Lg Martell [facility] [id number] Univers 00:00:00 00:00:00 Evelyn MCCLELLAN [id number] i ty [id number] [id number] [place]ical N[place] [address] [facility] 2021-07-16 2021-07-16 Outpatient R LG MARTELL [facility] [id number] Univers 16:15:00 16:15:00 ity Formerly [facility] 2021-07-16 2021-07-16 Psychiatric Specialist 2, Adc Lab [place] [id number] Univers 16:15:00 16:15:00 Visit Lg Martell Evelyn MCCLELLAN [id number] ity [facility] [id number] [phone] [facility] 2021-07-14 2021-07-14 Outpatient R LG MARTELL [facility] [id number] Univers 16:30:00 16:30:00 ity [facility]ly [facility] 2021-07-14 2021-07-14 Psychiatric Specialist 2, Adc Lab [facility] [id number] Univers 16:15:00 16:15:00 Visit Lg Martell Evelyn MCCLELLAN [id number] ity [facility] [id number] [id number] [place] dical N[place] [address] [facility] 2021-07-10 2021-07-10 Psychiatric Specialist 2, Adc Lab [facility] [id number] Univers 15:30:00 15:41:38 Visit Lg Martell [id number] ity [facility] [id number] Harshad jeong BONNIEEDU [phone] La dical [address] 2021-07-10 2021-07-10 Outpatient R LG MARTELL [facility] [id number] Univers 14:00[facility] 2021-06-26 2021-06-26 Outpatient LAB90 IRIS KAUFFMAN [id number] Iris 15:30:00 15:30:00 Seybol d 2021-06-26 2021-06-26 Office Kelvin Leroy [id number] Iris 14:30:00 15:00:00 Visit Gianna Valderrama [id number] Se charmaine Racheljuniorrani 1.2.7.2.686 [id number] 2020-05-29 2020-05-29 Outpatient Mata [facility]G [facility]G [id number] [place] 02:24:00 02:24:00 [facility] 2019-10-17 2019-10-17 Outpatient Mata MMG MMG [id number] [place] 12:52:00 12:52:00 [facility] Results Test Description Test Time Test Comments Results Result Comments Source HCG, QUANTITATIVE, 2021-07-10 23:23:35 Test Item Value Reference Range Interpretation Comme nts BETA HCG (test code = See_Comment [Auto mated message] The [id number]) system which ge nerated this result transmit jackie reference range : Non- fe male and male patients: <5 mIU/mL. The reference r dnever was not used to interpr et this result as merline l/abnormal. MIL (test code = MIL) Gestational Age ?Range (mIU/mL) 1-10 ?Weeks ?[id number] Weeks ?[id number] Weeks ?6735-04964525-05 Weeks ?0893-172923 Biotin has been reported to cause a negative bias, interpret results relative to patient's use of biotin. [facility] WITH [id number] 21:56:34 Test Item Value Reference Range Interpretation [...] (test code = 37.5 fL 39.0-49.9 L 25480-4) RDW-CV (test code = 11.7 % 12.0-15.5 L 788-0) PLT (test code = See_Comment [Automated 777-3) message] The sy stem which generated this result transmitted reference range : 166 - 358 10*3/ ?L. The reference r denver was not used to interpret this result as normal/abnormal . MPV (test code = 10.7 fL 9.5-12.9 79809-7) NRBC/100 WBC (test See_Comment [Automat ed code = 8358007860) message] The system which generated this result transmitted reference range : 0.0 - 10.0 /100 WBCs. The refer ence range was not u sed to interpret th is result as normal/abnormal . NRBC x10^3 (test code <0.01 See_Comment [Auto mated = 8962413536) message] The s ystem which generated this result transmitted reference range : 10*3/?L. The reference range was not used to interpret this result as normal/abnormal . GRAN MAT (NEUT) % 59.0 % (test code = 770-8) IMM GRAN % (test code 0.50 % = 1486536248) LYMPH % (test code = 31.7 % 736-9) MONO % (test code = 6.0 % 5905-5) EOS % (test code = 2.0 % 713-8) BASO % (test code = 0.8 % 706-2) GRAN MAT x10^3(ANC) 5.09 10*3/uL 1.88-7.09 (test code = 2432916788) IMM GRAN x10^3 (test 0.04 10*3/uL 0.00-0.06 code = 2741833375) LYMPH x10^3 (test code 2.74 10*3/uL 1.32-3.29 = 731-0) MONO x10^3 (test code 0.52 10*3/uL 0.33-0.92 = 742-7) EOS x10^3 (test code = 0.17 10*3/uL 0.03-0.39 711-2) BASO x10^3 (test code 0.07 10*3/uL 0.01-0.07 = 704-7) Lab Interpretation Abnormal (test code = 55177-7) [facility] [id number] 21:21:53 Test Item Value Reference Range Interpretation Comments TEST (test code = 2106-3) Negative Iris SeyboldURINALYSIS NONAUTO W/O [id number] 20:49:00 Test Item Value Reference Range Interpretation Comments UD KETONES (test code = neg 5-160 442562) UD GLUCOSE (test code = neg 100-2000 247285) UD PROTEIN (test code = neg Trace - 2000 mg/dL 725511) UD LEUKOCYTES (test mod Trace - Large @ 2 code = 002780) min. UD NITRITE (test code = neg Neg. - Pos. @ 60 027739) sec. UD UROBILINOGEN (test 0.2 mg/dL 0.2-8 code = 820590) UD PH (test code = See_Comment [Automat ed 863744) message] The sy stem which generated this result transmitted reference range : 5.0 - 8.5 @ 60 sec.. The refer ence range was not u sed to interpret th is result as normal/abnormal . UD BLOOD (test code = neg Neg. - Large @ 60 310142) sec. UD SPECIFIC GRAVITY See_Comment [Automa jackie (test code = 169712) message ] The system which generated this result transmitted reference range : 1.000 - 1.030 @ 45 sec.. The refer ence range was not u sed to interpret th is result as normal/abnormal . UD BILIRUBIN (test code neg Neg. - Large @ 45 = 852667) sec. Lab Interpretation Abnormal (test code = 09204-7) [facility] [id number] 04:29:00 Test Item Value Reference Range Interpretation [...] 45-117 N TOTAL (test code = ALKP) [id number] 04:29:00 Test Item Value Reference Range Interpretation Comments PHOSPHOROUS (test code = PHOS) 3.9 MG/DL 2.5-4.9 N [id number] 04:29:00 Test Item Value Reference Range Interpretation Comments MAGNESIUM (test code = MAG) 1.8 MG/DL 1.8-2.4 N T4 [id number] 04:29:00 Test Item Value Reference Range Interpretation Comments T4 FREE (test code = T4F) 0.91 NG/DL 0.89-1.76 N THYROID STIMULATING [id number] 04:29:00 Test Item Value Reference Range Interpretation Comments THYROID STIMULATING HORMONE 3.020 mcIU/ML 0.340-4.820 N (test code = TSH) [id number] 03:32:00 Test Item Value Reference Range Interpretation [...] Completed by Nursing: NO- XR CHEST 1 [id number] 01:42:00 Name: MARINA JASSO Jupiter : 1985 Age/S: 34 / F [address] Unit #: [id number] Loc: [place] [address] Phys: Clement Callejas MD Acct: [id number] Dis Date: Status: ADM IN PHONE #: [phone] Exam Date: 05/02/2019 0135 FAX #: Reason: PALPITATIONS EXAMS: CPT: [id number] XR CHEST 1 V 66531 Fluoro Time: DAP (Gy m2): Air Kerma [...] PAGE 1 Signed Report Name: MARINA JASSO Jupiter : 1985 Age/S: 34 / F [address] Unit #: [id number] Loc: [place] [address] Phys: Clement Callejas MD Acct: [id number] Dis Date: Status: ADM IN PHONE #: [phone] Exam Date: 05/02/2019 0135 FAX #: Reason: PALPITATIONS EXAMS: CPT: [id number] XR CHEST 1 V 21276 Fluoro Time: DAP (Gy m2): Air Kerma (mGy): <Continued> Technologist: Rodney Garcia RT(R); Ry Kincaid RT(R)(CT) Trnscb Date/Time: 05/02/2019(014) t.[email or web address].[email or web address] Orig Print D/T: S: 05/02/2019 (014) PAGE 2 Signed [id number] 00:22:00 Test Item Value Reference Range Interpretation [...]
[2021-10-17 17:42] LABS: Urine Blood Negative (Negative); Urine Glucose Negative (Negative); Urine Protein Negative (Negative); Urine Specific Gravity >=1.030 (1.005-1.030); Urine pH 6.5 (5.0-7.0)
--- NOTE | 2021-10-17 18:24 | RAD REPORT ---
EXAM DESCRIPTION: US - Renal Ultrasound-Complete - 10/17/2021 6:07 pm CLINICAL HISTORY: flank pain COMPARISON: Abdomen Exam Limited dated 10/26/2017None. FINDINGS: The right kidney measures . The left kidney measures . Renal cortical thickness and echog enicity are normal. An 18 millimeter cyst is present in the lower half of the left kidney. Approximat ryan 8-9 mm nonshadowing echogenic focus in the lateral mid left kidney is present possibly a nonshado wing, nonobstructed stone, atypical hilar fat presentation or possibly angiomyolipoma. None of these etiologies are considered of acute clinical significance. No hydronephrosis or suspicious renal mass. No bladder wall thickening or mass. No intraluminal stone or mass. IMPRESSION: No hydronephrosis or suspicious renal mass. A small echogenic focus of the left kidney could be a nonshadowing, nonobstructing stone, hilar fat o r possibly angiomyolipoma. None of these are acute clinical significance. No bladder abnormality seen.
[2021-10-17 18:26] LABS: Absolute Lymphocytes (CBC) 0.9 K/uL (0.7-4.9); Lymphocytes % 15.1 % (15.3-44.8); MPV 9.1 fL (7.6-11.3); RBC Red Blood Cell Count 3.78 M/uL (3.86-4.86)
[2021-10-17 18:30] LABS: Urine Bacteria 20-50 /HPF (<20); Urine Mucus 1+ /HPF (NONE SEEN); Urine RBC <5 /HPF (NONE SEEN)
[2021-10-17 18:33] LABS: BUN Blood Urea Nitrogen 7 mg/dL (7-18); Bicarbonate 23 mmol/L (21-32); Glucose Level 88 mg/dL (74-106); Potassium 3.6 mmol/L (3.5-5.1); Sodium Level 136 mmol/L (136-145)
--- NOTE | 2021-10-17 19:14 | ER ---
Nurse's Notes [facility] Name: Ambar Harding Age: 36 yrs Sex: Female : 1985 Arrival Date: 10/17/2021 Time: 17:15 Bed Waiting Private MD: Diagnosis: UTI/ Urinary tract infection, site not specified;Flank Pain Presentation: 10/17 17:45 Chief complaint: Patient states: back pain and urinary problem. Coronavirus screen: ss Client denies travel out of the [place] in the last 14 days. Ebola Screen: Patient denies exposure to infectious person. Patient denies travel to an Ebola-affected area in the 21 days before illness onset. Initial Sepsis Screen: Does the patient meet any 2 criteria? No. Patient's initial sepsis screen is negative. Does the patient have a suspected source of infection? No. Patient's initial sepsis screen is negative. Risk Assessment: Do you want to hurt yourself or someone else? Patient reports no desire to harm self or others. 17:45 Method Of Arrival: Ambulatory ss 17:45 Acuity: DEAN 3 ss Triage Assessment: 19:30 General: Behavior is calm, cooperative, appropriate for age. General: Appears in no ab2 apparent distress. Musculoskeletal: Reports pain in left flank. Historical: - Allergies: 17:46 PENICILLINS; ss - PMHx: 17:46 gestational diabetes; mitral valve prolapse; ss - PSHx: 17:46 right knee; ss - Immunization history:: Adult Immunizations up to date. - Social history:: Smoking status: Patient denies any tobacco usage or history of. Screenin:30 Abuse screen: Denies threats or abuse. Denies injuries from another. Nutritional ab2 screening: No deficits noted. Tuberculosis screening: No symptoms or risk factors identified. Fall Risk None identified. Assessment: 19:30 General: Appears in no apparent distress. uncomfortable. Pain: Complains of pain in ab2 left flank. Neuro: Level of Consciousness is awake, alert, obeys commands, Oriented to person, place, time, situation, Appropriate for age Chef Saucier are equal bilaterally Moves all extremities. Gait is steady, Speech is normal, Facial symmetry appears normal. Cardiovascular: No deficits noted. Denies chest pain, shortness of breath. Respiratory: Airway is patent Respiratory effort is even, unlabored, Respiratory pattern is regular, symmetrical. GI: No deficits noted. No signs and/or symptoms were reported involving the gastrointestinal system. Vital Signs: 17:45 BP 125 / 91; Pulse 91; Resp 18; Temp 98.1(TE); Pulse Ox 100% on R/A; Weight 99.34 kg; Height 5 ft. 1 in. (154.94 cm); 19:29 BP 117 / 83; Pulse 87; Resp 17; Pulse Ox 98% on R/A; ab2 17:45 Body Mass Index 41.38 (99.34 kg, 154.94 cm) ED Course: 17:15 Patient arrived in ED. mr 17:16 Oliva Valderrama [facility]-C [facility] kb 17:16 Kraig Buck MD is Attending Physician. kb 17:45 Arm band placed on right wrist. ss 17:46 Triage completed. 18:09 Initial lab(s) drawn, by me, sent to lab. Inserted saline lock: 20 gauge in right dh3 antecubital area, using aseptic technique. Blood collected. 18:10 US Rp Exam Complete In Process Unspecified. EDMS 19:30 No provider procedures requiring assistance completed. IV discontinued, intact, ab2 bleeding controlled, No redness/swelling at site. Pressure dressing applied. 19:31 Patient has correct armband on for positive identification. ab2 Administered Medications: No medications were administered Outcome: 19:14 Discharge ordered by . kb 19:31 Discharged to home ambulatory. ab2 19:31 Condition: good 19:31 Discharge instructions given to patient, Instructed on discharge instructions, follow up and referral plans. medication usage, Demonstrated understanding of instructions, follow-up care, medications, Prescriptions given X 1. 19:31 Patient left the ED. ab2 Signatures: Dispatcher [employer] EDMS Oliva Valderrama FNP-C FNP-Ckb Tesha Bowser mr Jennifer Jose, STUART RN [facility] Shakir Farmer ab2
--- NOTE | 2021-10-17 19:14 | EDPHYS ---
Physician Documentation [facility] Name: Ambar Harding Age: 36 yrs Sex: Female : 1985 Arrival Date: 10/17/2021 Time: 17:15 Bed Waiting Private MD: DENZEL Physician Kraig Buck HPI: 10/17 17:35 This 36 yrs old Female presents to ER via Unassigned with complaints of 17 wks kb , Back Pain, Urinary Problem. 17:35 "Last time I opted out of having blood work or an ultrasound done so I want to have kb those done now." Pt reports return of left flank pain, discolored urine, decreased urination. . 17:40 The patient complains of pain in the left flank. The pain does not radiate. Onset: The kb symptoms/episode began/occurred today. Modifying factors: The symptoms are alleviated by nothing. the symptoms are aggravated by palpation/percussion. Associated signs and symptoms: Pertinent positives: decreased urination, discolored urine. Modifying factors: The patient symptoms are alleviated by nothing, the patient symptoms are aggravated by palpation. Associated signs and symptoms: The patient has no apparent associated signs or symptoms. Severity of pain: At its worst the pain was moderate in the emergency department the pain is unchanged. The patient has experienced a previous episode. The patient has been recently seen at the [facility] Emergency Department, a couple of weeks ago, for similar complaints labs were performed, was given a prescription for antibiotics. Historical: - Allergies: 17:46 PENICILLINS; ss - PMHx: 17:46 gestational diabetes; mitral valve prolapse; ss - PSHx: 17:46 right knee; ss - Immunization history:: Adult Immunizations up to date. - Social history:: Smoking status: Patient denies any tobacco usage or history of. ROS: 17:44 Constitutional: Negative for fever, chills, and weight loss. kb 17:44 : Positive for flank pain, small amounts. 17:44 All other systems are negative. Exam: 17:44 Constitutional: This is a well developed, well nourished patient who is awake, alert, kb and in no acute distress. Head/Face: Normocephalic, atraumatic. ENT: Moist Mucous membranes Cardiovascular: Regular rate and rhythm with a normal S1 and S2. No gallops, murmurs, or rubs. No pulse deficits. Respiratory: Respirations even and unlabored. No increased work of breathing. Talking in full sentences Skin: Warm, dry with normal turgor. Normal color. MS/ Extremity: Pulses equal, no cyanosis. Neurovascular intact. Full, normal range of motion. Neuro: Awake and alert, GCS 15, oriented to person, place, time, and situation. Moves all extremities. Normal gait. Psych: Awake, alert, with orientation to person, place and time. Behavior, mood, and affect are within normal limits. 17:44 Back: CVA tenderness, that is mild, is noted on the left. Vital Signs: 17:45 BP 125 / 91; Pulse 91; Resp 18; Temp 98.1(TE); Pulse Ox 100% on R/A; Weight 99.34 kg; ss Height 5 ft. 1 in. (154.94 cm); 19:29 BP 117 / 83; Pulse 87; Resp 17; Pulse Ox 98% on R/A; ab2 17:45 Body Mass Index 41.38 (99.34 kg, 154.94 cm) ss MDM: 17:34 Patient medically screened. kb 17:44 Data reviewed: vital signs, nurses notes. Data interpreted: Pulse oximetry: on room air kb is 100 %. Interpretation: normal. 19:13 Counseling: I had a detailed discussion with the patient and/or guardian regarding: the kb historical points, exam findings, and any diagnostic results supporting the discharge/admit diagnosis, lab results, radiology results, the need for outpatient follow up, an OB/Gyne specialist, to return to the emergency department if symptoms worsen or persist or if there are any questions or concerns that arise at home. 10/17 17:34 Order name: CBC with Diff; Complete Time: 18:29 kb 10/17 17:34 Order name: Basic Metabolic Panel; Complete Time: 18:40 kb 10/17 17:34 Order name: Urine Microscopic Only; Complete Time: 18:31 kb 10/17 17:42 Order name: Urine Dipstick-Ancillary; Complete Time: 17:45 EDMS 10/17 17:44 Order name: Urine --Ancillary (enter results); Complete Time: 18:08 eb 10/17 18:33 Order name: Urine Culture EDMS 10/17 17:34 Order name: Urine Dipstick-Ancillary (obtain specimen); Complete Time: 18:16 kb 10/17 17:34 Order name: IV Start; Complete Time: 18:16 kb 10/17 17:34 Order name: US Rp Exam Complete; Complete Time: 18:29 kb Administered Medications: No medications were administered Disposition Summary: 10/17/21 19:14 Discharge Ordered Location: Home kb Condition: Stable kb Diagnosis - UTI/ Urinary tract infection, site not specified kb - Flank Pain kb Followup: kb - With: Emergency Department - When: As needed - Reason: Worsening of condition Followup: kb - With: Private Physician - When: 2 - 3 days - Reason: Recheck today's complaints, Continuance of care, Re-evaluation by your physician Discharge Instructions: - Discharge Summary Sheet kb - Urinary Tract Infection, Adult, [id number] kb Forms: - Medication Reconciliation Form kb - Thank You Letter kb - Antibiotic Education kb - Prescription Opioid Use kb Prescriptions: - Macrobid 100 mg Oral Capsule - take 1 capsule by ORAL route every 12 hours for 10 days; 20 capsule; Refills: kb 0, Product Selection Permitted Addendum: 10/23/2021 18:55 Co-signature as Attending Physician, Kraig Buck MD I agree with the assessment and c evans plan of care. Signatures: Dispatcher [employer] Oliva Villareal, [employer] DEVELOPMENT MANAGER-Kraig Angel MD MD cha Smirch, Shelby, RN RN Shakir Chau
[2021-10-17 22:58] VITALS: TEMP 98.1
[2021-10-17 22:59] VITALS: BP 117/83; O2SAT 98
== END 2021-10-17 19:31 | disposition home or self-care (01) ==
LOC: ER 17:11
DX: O23.42 Unspecified infection of urinary tract in pregnancy, second trimester (principal); N39.0 Urinary tract infection, site not specified; O24.419 Gestational diabetes mellitus in pregnancy, unspecified control; Z3A.17 17 weeks gestation of pregnancy
CPT/HCPCS: 36415; 76770; 80048; 81003; 81015; 81025; 85025; 87086; 87088; 99284

== ENCOUNTER 2022-05-19 08:51 | Emergency (ER) | payer BC ==
--- OUTSIDE RECORDS SUMMARY | 2022-05-19 08:56 | XMS REPORT | Continuity of Care Document ---
:1985 Author Organization [facility] t Address [address] [place] [address] Dr. Gabriel. [address] [place] [address] Care Team Providers Name Role Phone Gianna Leroy MD Primary Care Physician [phone] NINO CABEZAS Attending Clinician Unavailable LAB90 Attending Clinician Unavailable Daja Martínez Attending Clinician Unavailable Kari Castano Attending Clinician Unavailable [id number] Attending Clinician Unavailable Hanna Hernández Attending Clinician LEX Attending Clinician Unavailable LG MARTELL Attending Clinician Unavailable Lg Martell MD Attending Clinician 2, Adc Lab Attending Clinician Unavailable KAYKAY ESCOBEDO Attending Clinician Unavailable Kaykay Escobedo MD Attending Clinician Doctor Unassigned, Hansen Attending Clinician Unavailable Gianna Leroy MD Attending Clinician [phone] Mata Attending Clinician Unavailable Daja Martínez Admitting Clinician Unavailable Kari Castano Admitting Clinician Unavailable LEX Admitting Clinician Unavailable Mata Admitting Clinician Unavailable Payers Payer Name Policy Type Policy Number Effective Date Expiration Date S [facility] 2 [id number] 2020 00:00:00 [employer] [place] - [id number] 2020 00:00:00 OUT OF STATE Problems Condition Condition Condition Status Onset Resolution Last Treating Co mments Source Name Details Category Date Date Treatment Clinician Date 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 l She has never had a reaction Penicill Propensi Active 2020-07 Patient Jc rocha ins ty to 2-16 [facility] Seybold adverse 00:00: her Mom reaction 00 is s allergic. She has never had a reaction Penicill DA Active U UNKNOWN 2018-07 [facility] ins 0-21 [facility] [place] Penicill DA Active U 2018-07 [facility] ins 0-21 Clear 00:00: [place] 00 [facility] NO KNOWN Drug Active Univers ALLERGIE Class ity of S [facility] Social History Social Habit Start Date Stop Date Quantity Comments Source ASSERTION 2021-06-20 Iris Ernandezold - 00:00:00 External History SDOH University o f Alcohol Frequency [place] [facility] History SDOH University o f Alcohol Std [place] [facility] History [facility] University o f Alcohol Binge [place] [facility] Exposure to Not sure University of SARS-CoV-2 [place] [facility] (event) [facility] Alcohol intake 2021-07-10 2021-07-10 Ex-drinker University of 00:00:00 00:00:00 (finding) [facility] Alcohol Comment 2021-07-10 2021-07-10 occasional before Un iversity of 00:00:00 00:00:00 finding out was [place] [facility] Sex Assigned At [birth year] Universit y of 00:00:00 00:00:00 [facility] Smoking Status Start Date Stop Date Source Never smoked tobacco Iris Ernandez old - External Medications Ordered Filled Start Stop Current Ordering Indication Dosage Frequency Signature Comments Components Source Medication Medication Date Date Medication? Clinician (SIG) Name Name YISSEL 2021-07- Yes [id number] 1{tbl} Take 1 Iris M-SULFAMETH 07-14 tablet by Se montano OXAZOLE 00:00: 05:59 mouth 2 - (Bactrim 00 :00 times Externa DS) 800-160 daily for l MG oral 5 days Tablet Nitrofurant 2021- No TAKE ONE K elsey oin Monohyd 03-26 (1) Cassia Macro 100 00:00: 00:00 CAPSULE(S) - MG oral 00 :00 BY MOUTH Externa Capsule TWICE A l DAY WITH FOOD FOR 7 DAYS. Amoxicillin 2021- No [id number] 1{tbl} Take 1 Iris -Pot 02-17 tablet by Cassia Clavulanate 00:00: 00:00 mouth 2 - 875-125 MG 00 :00 times Externa oral Tablet daily l guaiFENesin 2021- No [id number] 5mL Q.[id number] Take 5 mL Iris -Codeine 02-17 [id number] by mouth 3 Seybold 100-10 00:00: 00:00 3D times - MG/5ML oral 00 :00 daily as Exte rna Solution needed for l cough Acetaminoph 2021- No 1{tbl} Q.25D Take 1 Iris en-Codeine 01-13 tablet by Karen frost #3 300-30 00:00: 00:00 mouth - MG oral 00 :00 every 6 Externa Tablet hours as l needed Neomycin-Po 2021- No APPLY Eva bernal lymyxin-Dex 01-02 SMALL Seybol d ameth 00:00: 00:00 AMOUNT - [id number] 00 :00 INSIDE [employer] Consultant a .1 RIGHT l ophthalmic LOWER LID Ointment TWICE DAILY FOR 10 DAYS Blood 2021- No See Admin Iris Glucose 6-14 11-03 Instructio Seybo ld Monitoring 00:00: 00:00 ns - Suppl (ONE 00 :00 Externa TOUCH ULTRA l 2) w/Device does not apply Kit OneTouch 2021- No USE FOUR Eva ey Ultra in 12-23 TIMES A Seybold vitro Strip 00:00: 00:00 DAY - 00 :00 DIRECTED. Externa l Lancets 2021- No USE FOUR Kelse y (OneTouch 12-23 TIMES A Seybol d Delica Plus 00:00: 00:00 DAY - Biqcyr30D) 00 :00 DIRECTED. Exte rna does not l apply Misc metoprolol 2020-07 Yes 50mg Take 50 mg U nivers succinate 2-18 by mouth ity of [place] 50 mg 24 [place] [facility] metoprolol 2020-07 Yes 50mg Take 50 mg U nivers succinate 2-18 by mouth ity of XL 50 mg 24 00:[place] [facility] metoprolol 2020-07 Yes 50mg Take 50 mg U nivers succinate 2-18 by mouth ity of XL 50 mg 24 00:00: [place]. [place] [facility] metoprolol 2020-07 Yes 50mg Take 50 mg U nivers succinate 2-18 by mouth ity of XL 50 mg 24 00:00: [place]. [place] [facility] Nitrofurant 2020-07 Yes [id number] 100mg Take 1 Iris oin Monohyd 2-16 capsule Seybo ld Macro 100 00:00: (100 mg MG oral 00 total) by Capsule mouth 2 times daily Naproxen 2020-07 Yes [id number] 500mg Take 1 K elsey 500 MG oral 2-16 tablet Seybol d Tablet 00:00: (500 mg 00 total) by mouth 2 times daily (with meals) Naproxen 2020-07- No [id number] 500mg Take 1 Iris 500 MG oral 2-16 05-14 tablet Seybo ld Tablet 00:00: 00:00 (500 mg - 00 :00 total) by Externa mouth 2 l times daily (with meals) Metoprolol 2020-07 Yes 50mg Take 50 mg K elsey Succinate 1-22 by mouth Seybol d 50 MG oral 00:00: daily TABLET SR 00 24 HR Metoprolol 2020-07 Yes 50mg Take 50 mg K elsey Succinate 1-22 by mouth Seybol d 50 MG oral 00:00: daily - TABLET SR 00 Externa 24 HR l Immunizations Ordered Filled Immunization Date Status Comments [facility] e Immunization Name Name Influenza, 2021-07-10 Completed Iris Antony - Injectable, Mdck, 00:00:00 Externa l Preservative Free, Quadrivalt Influenza Virus 2021-07-10 Completed Universit y of Vaccine Quad IM, 00:00:00 [place] [facility] Preserv and ABX Branch Free 6 MO-64 YRS Influenza Virus 2021-07-10 Completed Universit y of Vaccine Quad IM, 00:00:00 [place] [facility] Preserv and ABX Branch Free 6 MO-64 YRS Influenza Virus 2021-07-10 Completed Universit y of Vaccine Quad IM, 00:00:00 [place] [facility] Preserv and ABX Branch Free 6 MO-64 YRS Influenza Virus 2021-07-10 Completed Universit y of Vaccine Quad IM, 00:00:00 [place] [facility] Preserv and ABX Branch Free 6 MO-64 YRS Vital Signs Vital Name Observation Time Observation Value Comments Source Systolic blood 2022-05-14 20:17:00 136 mm[Hg] Iris Antony - pressure External Diastolic blood 2022-05-14 20:17:00 83 mm[Hg] Jc Antony - pressure External Heart rate 2022-05-14 20:17:00 87 /min Iris banerjee - External Body temperature 2022-05-14 20:17:00 36.17 Denia Eva Antony - External Respiratory rate 2022-05-14 20:17:00 14 /min Eva Antony - External Body height 2022-05-14 20:17:00 180.3 cm Iris banerjee - External Body weight 2022-05-14 20:17:00 101.606 kg Iris banerjee - External BMI 2022-05-14 20:17:00 31.24 kg/m2 Iris banerjee - External Oxygen saturation in 2022-05-14 20:17:00 99 /min Iris Seybold - Arterial blood by External Pulse oximetry Systolic blood 2021-06-26 20:17:00 124 mm[Hg] Iris Seybfatemeh pressure Diastolic blood 2021-06-26 20:17:00 78 mm[Hg] Jc aj Quezadaybfatemeh pressure Heart rate 2021-06-26 20:17:00 92 /min Iris banerjee Body temperature 2021-06-26 20:17:00 37.06 Denia Evaadenike bernal Seybfatemeh Respiratory rate 2021-06-26 20:17:00 12 /min Eva Antony Body height 2021-06-26 20:17:00 180.3 cm Iris banerjee Body weight 2021-06-26 20:17:00 100.699 kg Iris banerjee BMI 2021-06-26 20:17:00 30.96 kg/m2 Iris banerjee Procedures Procedure Date / Time Performed Performing Clinician [facility] e [id number] 2022-03-01 00:00:00 [facility] [id number] 2022-03-01 00:00:00 [facility] [id number] 2022-03-01 00:00:00 [facility] [id number] 2022-03-01 00:00:00 [facility] CBC WITH DIFF 2021-07-10 21:48:00 Lg Martell [place] o f [facility] TOTAL BETA HCG ASSAY 2021-07-10 21:48:00 Lg Martell [facility] LS URINE 2021-06-26 21:19:00 Gianna Leroy Se TEST-LAB TEST Somogyi URINALYSIS NONAUTO W/O 2021-06-26 20:49:00 Gianna Leroy SCOPE Somogyi Encounters Start End Encounter Admission Attending Care Care Encounter Source Date/Time Date/Time Type Type Clinicians Facility Department ID 2022-05-18 2022-05-18 Outpatient IRIS CABEZAS [id number] Erica Simmons 00:00:00 00:00:00 NINO ortiz 2022-05-14 2022-05-14 Outpatient LAB90 IRIS SIMMONS [id number] Iris 15:45:00 15:45:00 Seybol d 2022-05-14 2022-05-14 Outpatient NICOLE CABEZASKAREN SIMMONS [id number] Iris 15:00:00 15:00:00 NINO Seybol d 2022-03-01 2022-03-03 Inpatient JUSTIN Broussard [facility] OBPP [id number] [facility] 15:34:00 13:11:00 Puckly, 40 Clear Daja [facility] 2022-02-27 2022-03-01 Inpatient OLIVE Castano [facility] OBANTE [id number] [facility] 16:14:00 13:44:00 Kari 59 Woman 's [facility] 2022-02-17 2022-02-17 Outpatient [id number]-[id number] IRIS SIMMONS [id number] Iris 16:45:00 16:45:00 Seybol d 2022-02-17 2022-02-17 Office Kelvin Sanchez [id number] Iris 16:00:00 16:30:00 Visit Hanna Valderrama [id number] Se charmaine [id number] 2022-01-26 2022-01-26 Outpatient AAYUSH SINGH OHCRISTIAN [address] [place] 03:12:00 03:12:00 SSA 0718 [facility] 2021-07-25 2021-07-25 Outpatient R LG MARTELL [facility] [id number] Univers 10:15[facility]00 [facility] 2021-07-25 Outpatient R LG MARTELL [facility] [id number] Univers 10:15:00 10:15:00 [facility] 2021-07-22 2021-07-22 Telephone Lg Martell [facility] [id number] Univers 00:00:00 00:00:00 Fito MCCLELLAN [id number] i ty ananth [place] [id number] [place] PROF[place] [id number] Sd dical [address] 2021-07-16 2021-07-16 Outpatient R [facility] [id number] Univers 16:15:00 16:15:00 ity of [facility] 2021-07-16 2021-07-16 Outpatient R LG MARTELL [facility] [id number] Univers 16:15:00 16:15:00 ity of [facility] 2021-07-16 2021-07-16 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, 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 [facility] [id number] Univers 16:15:00 16:15:00 Visit Lg Martell VY [id number] ity of [place] [id number] [place] [id number] Sd dical [address] 2021-07-16 2021-07-16 Outpatient [facility] [id number] Univers 14:00:00 14:00:00 KAYKAY ity of [facility] 2021-07-14 2021-07-14 Outpatient R [facility] [id number] Univers 16:30:00 16:30:00 ity of [facility] 2021-07-14 2021-07-14 Outpatient R LG MARTELL [facility] [id number] Univers 16:30:00 16:30:00 ity of [facility] 2021-07-14 2021-07-14 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, 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 [facility] [id number] Univers 16:15:00 16:15:00 Visit Lg Martell VY [id number] ity of [place] [id number] [id number] Sd dical NAL [address] [place] [address] 2021-07-10 2021-07-10 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, 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 [facility] [id number] Univers 15:30:00 15:41:38 Visit Lg Martell VY [id number] ity of [place] [id number] [id number] Sd dical NAL [address] [place] [address] 2021-07-10 2021-07-10 Initial Lg Martell [facility] [id number] Univers 14:00:00 15:32:45 Fito MCCLELLAN [id number] ity of Visit [place] [id number] [id number] Sd dical NAL [address] [place] [address] 2021-07-10 2021-07-10 Outpatient R LG MARTELL [facility] [id number] Univers 14:00:00 15:32:45 ity of [facility] 2021-07-10 2021-07-10 Outpatient R JASBIR [facility] [id number] Univers 14:00:00 15:32:45 ity of [facility] 2021-07-10 2021-07-10 Telephone Gregg [facility] [id number] Univers 00:00:00 00:00:00 Kaykay MCCLELLAN [id number] ity of [place] [id number] [place] [id number] Sd dic[address] 2021-07-10 2021-07-10 Orders Doctor ACROLYN [id number] Univers 00:00:00 00:00:00 Only Unassigned, RANDALL [id number] ity of Hansen [facility] [id number] Kiet as [id number] [address] 2021-07-10 2021-07-10 Telephone Lg Martell [facility] [id number] Univers 00:00:00 00:00:00 Fito MCCLELLAN [id number] i ty of [place] [id number] [place] [id number] Sd dical NAL [address] [place] [address] 2021-06-26 2021-06-26 Outpatient LAB90 IRIS SIMMONS [id number] Iris 15:30:00 15:30:00 Sekameron ortiz 2021-06-26 2021-06-26 Office Kelvin Leroy [id number] Iris 14:30:00 15:00:00 Visit Gianna Valderrama [id number] Se charmaine Harris [id number] 2020-05-29 2020-05-29 Outpatient Mata [facility] [id number] [place] 02:24:00 02:24:00 118 [facility] 2019-10-17 2019-10-17 [id number] [place] 12:52:00 12:52:00 407 [facility] Results Test Description Test Time Test Comments Results Result Comments Source COMPREHENSIVE METABOLIC PANEL 2022-03-02 05:48:00 Test Item Value Reference Range Interpretation Comme nts SODIUM (test code = NA) 135 mEq/L 134-147 N POTASSIUM (test code = K) 3.7 mEq/L 3.4-5.0 N CHLORIDE (test code = CL) 105 mEq/L 100-108 N CARBON DIOXIDE (test code = CO2) 23 mEq/l 21-33 N ANION GAP (test code = GAP) 11 0-20 N GLUCOSE (test code = GLU) 97 mg/dL 70-110 N BLOOD UREA NITROGEN (test code = 6 mg/dL 7-18 L BUN) GLOMERULAR FILTRATION RATE (test 182.7 105-110 H Units of measure = code = GFR) ml/min/1.73 m2 CREATININE (test code = CREAT) 0.4 mg/dL 0.6-1.3 L TOTAL PROTEIN (test code = PROT) 5.7 g/dL 6.4-8.2 L ALBUMIN (test code = ALB) 2.90 g/dL 3.4-5.0 L CALCIUM (test code = CA) 7.5 mg/dL 8.0-10.5 L BILIRUBIN TOTAL (test code = BILT) 0.60 mg/dL 0.0-1.0 N SGOT/AST (test code = AST) 21 IUnit/L 15-37 N SGPT/ALT (test code = ALT) 22 IUnit/L 30-65 L ALKALINE PHOSPHATASE TOTAL (test 97 IUnit/L 20-125 N code = ALKP) CBC W/AUTO [id number] 05:36:00 Test Item Value Reference Range Interpretation Comments WHITE BLOOD CELL (test code = 11.9 x10 3/uL 4.5-11.0 H WBC) RED BLOOD CELL (test code = 3.40 x10 6/uL 3.54-5.02 L RBC) HEMOGLOBIN (test code = HGB) 10.3 g/dL 11.0-15.0 L HEMATOCRIT (test code = HCT) 30.3 % 33.0-45.0 L MEAN CELL VOLUME (test code = 89.1 fL 81.0-99.0 N MCV) MEAN CELL HGB (test code = MCH) 30.3 pg 27.0-33.0 N MEAN CELL HGB CONCETRATION 34.0 g/dL 33.0-37.0 N (test code = MCHC) RED CELL DISTRIBUTION WIDTH CV 13.4 % 11.5-14.5 N (test code = RDW) RED CELL DISTRIBUTION WIDTH SD 43.2 fL 37.0-54.0 N (test code = RDW-SD) PLATELET COUNT (test code = 154 x10 3/uL 150-400 N PLT) MEAN PLATELET VOLUME (test code 11.5 fL 7.0-9.0 H = MPV) NEUTROPHIL % (test code = NT%) 73.3 % 56.0-77.0 N IMMATURE GRANULOCYTE % (test 0.4 % 0.0-2.0 N code = IG%) LYMPHOCYTE % (test code = LY%) 18.2 % 14.0-32.0 N MONOCYTE % (test code = MO%) 7.0 % 4.8-9.0 N EOSINOPHIL % (test code = EO%) 0.6 % 0.3-3.7 N BASOPHIL % (test code = BA%) 0.5 % 0.0-2.0 N NUCLEATED RBC % (test code = 0.0 % 0-0 N NRBC%) NEUTROPHIL # (test code = NT#) 8.69 x10 3/uL 2.0-7.6 H IMMATURE GRANULOCYTE # (test 0.05 x10 3/uL 0.00-0.03 H code = IG#) LYMPHOCYTE # (test code = LY#) 2.16 x10 3/uL 1.0-3.8 N MONOCYTE # (test code = MO#) 0.83 x10 3/uL 0.1-0.8 H EOSINOPHIL # (test code = EO#) 0.07 x10 3/uL 0.0-0.2 N BASOPHIL # (test code = BA#) 0.06 x10 3/uL 0.0-0.2 N NUCLEATED RBC # (test code = 0.00 x10 3/uL 0.0-0.1 N NRBC#) MANUAL DIFF REQUIRED (test code NO = MDIFF) GLUCOSE [id number] 18:49:00 Test Item Value Reference Range Interpretation Comments GLUCOSE BEDSIDE (test 149 MG/DL 70-110 H Perfor med by certified code = GLUBED) 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 [facility] COMPREHENSIVE METABOLIC [id number] 11:09:00 Test Item Value Reference Range Interpretation Comments SODIUM (test code = NA) 136 mEq/L 135-145 N POTASSIUM (test code = K) 3.7 mEq/L 3.5-5.0 N CHLORIDE (test code = CL) 102 mEq/L 100-115 N CARBON DIOXIDE (test code = CO2) 23 mEq/L 22-31 N ANION GAP (test code = GAP) 14.40 10-20 N GLUCOSE (test code = GLU) 101 mg/dL 65-110 N BLOOD UREA NITROGEN (test code = 6 mg/dL 7-18 L BUN) GLOMERULAR FILTRATION RATE (test 114 ml/min >60 N code = GFR) CREATININE (test code = CREAT) 0.6 mg/dL 0.5-1.0 N TOTAL PROTEIN (test code = PROT) 6.0 gm/dL 6.3-8.2 L ALBUMIN (test code = ALB) 2.8 gm/dL 3.4-4.8 L CALCIUM (test code = CA) 7.3 mg/dL 8.4-10.2 L BILIRUBIN TOTAL (test code = 0.5 mg/dL 0.2-1.0 BILT) SGOT/AST (test code = AST) 24 units/L 15-37 N SGPT/ALT (test code = ALT) 30 units/L 12-78 N ALKALINE PHOSPHATASE TOTAL (test 102 units/L 46-116 N code = ALKP) [id number] 11:06:00 Test Item Value Reference Range Interpretation Comments MAGNESIUM (test code = MAG) 4.3 mg/dL 1.8-2.4 H CBC W/AUTO [id number] 11:06:00 Test Item Value Reference Range Interpretation Comments WHITE BLOOD CELL (test code = WBC) 8.6 K/mm3 6.5-12.3 N RED BLOOD CELL (test code = RBC) 3.52 M/mm3 3.51-4.69 N HEMOGLOBIN (test code = HGB) 10.9 g/dL 10.1-13.8 N HEMATOCRIT (test code = HCT) 31.5 % 32.5-41.8 L MEAN CELL VOLUME (test code = MCV) 89.5 fL 84.6-96.6 N MEAN CELL HGB (test code = MCH) 31.0 pg 27.3-33.9 N MEAN CELL HGB CONCETRATION (test 34.6 gm/dL 32.0-34.2 H code = MCHC) RED CELL DISTRIBUTION WIDTH (test 13.4 % 12.2-16.3 N code = RDW) PLATELET COUNT (test code = PLT) 156 K/mm3 134-363 N MEAN PLATELET VOLUME (test code = 11.7 fL 9.2-12.7 N MPV) NEUTROPHIL % (test code = NT%) 77.0 % 57.9-77.3 N LYMPHOCYTE % (test code = LY%) 15.8 % 14.5-29.7 N MONOCYTE % (test code = MO%) 5.6 % 3.6-10.2 N EOSINOPHIL % (test code = EO%) 0.7 % 0.0-3.0 N BASOPHIL % (test code = BA%) 0.3 % 0.1-0.9 N NEUTROPHIL # (test code = NT#) 6.6 K/mm3 LYMPHOCYTE # (test code = LY#) 1.4 K/mm3 MONOCYTE # (test code = MO#) 0.5 K/mm3 EOSINOPHIL # (test code = EO#) 0.06 K/mm3 BASOPHIL # (test code = BA#) 0.0 K/mm3 RBC MORPHOLOGY REQUIRED (test code NORMAL NORMAL = RBCM) PLATELET MORPHOLOGY REQUIRED (test NORMAL NORMAL code = PLTMR) [id number] 10:23:00 Test Item Value Reference Range Interpretation Comments GLUBED (test code = GLUBED) 115 mg/dL 65-110 H [id number] 05:41:00 Test Item Value Reference Range Interpretation Comments GLUBED (test code = GLUBED) 115 mg/dL 65-110 H [id number] 21:14:00 Test Item Value Reference Range Interpretation Comments GLUBED (test code = GLUBED) 134 mg/dL 65-110 H AG HEPATITIS B [id number] 20:22:00 Test Item Value Reference Range Interpretation Comments AG HEPATITIS B SURFACE (test code NONREACTIVE NONREACTIVE = HBSAG) AB HEPATITIS C [id number] 20:22:00 Test Item Value Reference Range Interpretation Comments AB HEPATITIS C (test code = NONREACTIVE NONREACTIVE HCVAB) SIGNAL TO CUTOFF (test code = 0.18 <0.80 N CUTOFF) RUBELLA [id number] 20:22:00 Test Item Value Reference Range Interpretation Comments RUBELLA SCREEN 79.3 IUnit/ml Results >10. 0IUnits/ml (test code = are considered positive RUBSC) inaccordance wi th the CLSI guidelines and based on the [employer] S tandard for Anti-Rubell a serum as anindicator of immune status and a br eakpoint to detect mostseropositiv e persons. AB [id number] 20:22:00 Test Item Value Reference Range Interpretation Comments AB TREPONEMA (test code = TREPAB) NONREACTIVE NONREACTIVE AB HIV 1 20:22:00 Test Item Value Reference Range Interpretation Comments AB HIV 1 2 (test NONREACTIVE NONREACTIVE Done by Sie [facility] code = [id number]) 4th Gen HIV Ag/Ab Combo Screen [id number] 15:26:00 Test Item Value Reference Range Interpretation Comments GLUBED (test code = GLUBED) 109 mg/dL 65-110 N COMPREHENSIVE METABOLIC [id number] 12:17:00 Test Item Value Reference Range Interpretation Comments SODIUM (test code = NA) 137 mEq/L 135-145 N POTASSIUM (test code = K) 3.6 mEq/L 3.5-5.0 N CHLORIDE (test code = CL) 105 mEq/L 100-115 N CARBON DIOXIDE (test code = CO2) 23 mEq/L 22-31 N ANION GAP (test code = GAP) 12.60 10-20 N GLUCOSE (test code = GLU) 105 mg/dL 65-110 N BLOOD UREA NITROGEN (test code = 5 mg/dL 7-18 L BUN) GLOMERULAR FILTRATION RATE (test 183 ml/min >60 N code = GFR) CREATININE (test code = CREAT) 0.4 mg/dL 0.5-1.0 L TOTAL PROTEIN (test code = PROT) 6.0 gm/dL 6.3-8.2 L ALBUMIN (test code = ALB) 2.9 gm/dL 3.4-4.8 L CALCIUM (test code = CA) 8.1 mg/dL 8.4-10.2 L BILIRUBIN TOTAL (test code = BILT) 0.3 mg/dL 0.2-1.0 N SGOT/AST (test code = AST) 18 units/L 15-37 N SGPT/ALT (test code = ALT) 26 units/L 12-78 N ALKALINE PHOSPHATASE TOTAL (test 97 units/L 46-116 N code = ALKP) [id number] 12:02:00 Test Item Value Reference Range Interpretation Comments GLUBED (test code = GLUBED) 93 mg/dL 65-110 N CBC W/AUTO [id number] 12:01:00 Test Item Value Reference Range Interpretation Comments WHITE BLOOD CELL (test code = WBC) 7.6 K/mm3 6.5-12.3 N RED BLOOD CELL (test code = RBC) 3.53 M/mm3 3.51-4.69 N HEMOGLOBIN (test code = HGB) 11.0 g/dL 10.1-13.8 N HEMATOCRIT (test code = HCT) 31.1 % 32.5-41.8 L MEAN CELL VOLUME (test code = MCV) 88.1 fL 84.6-96.6 N MEAN CELL HGB (test code = MCH) 31.2 pg 27.3-33.9 N MEAN CELL HGB CONCETRATION (test 35.4 gm/dL 32.0-34.2 H code = MCHC) RED CELL DISTRIBUTION WIDTH (test 13.2 % 12.2-16.3 N code = RDW) PLATELET COUNT (test code = PLT) 149 K/mm3 134-363 N MEAN PLATELET VOLUME (test code = 11.7 fL 9.2-12.7 N MPV) NEUTROPHIL % (test code = NT%) 70.2 % 57.9-77.3 N LYMPHOCYTE % (test code = LY%) 20.7 % 14.5-29.7 N MONOCYTE % (test code = MO%) 7.5 % 3.6-10.2 N EOSINOPHIL % (test code = EO%) 0.4 % 0.0-3.0 N BASOPHIL % (test code = BA%) 0.4 % 0.1-0.9 N NEUTROPHIL # (test code = NT#) 5.3 K/mm3 LYMPHOCYTE # (test code = LY#) 1.6 K/mm3 MONOCYTE # (test code = MO#) 0.6 K/mm3 EOSINOPHIL # (test code = EO#) 0.03 K/mm3 BASOPHIL # (test code = BA#) 0.0 K/mm3 RBC MORPHOLOGY REQUIRED (test code NORMAL NORMAL = RBCM) PLATELET MORPHOLOGY REQUIRED (test NORMAL NORMAL code = PLTMR) [id number] 06:18:00 Test Item Value Reference Range Interpretation Comments GLUBED (test code = GLUBED) 114 mg/dL 65-110 H COVID 19 Asymptomatic IH [id number] 17:10:00 Test Item Value Reference Range Interpretation Comments COVID 19 NEGATIVE NEGATIVE This test has b een Asymptomatic IH AG authorize d only for the (test code = detection ofpro teins from COVNONPUIAG) SARS-CoV-2, not for any other viruses orpathogens. Ne gative results should be treated as presumptive andconfirmed wi th a molecular assay , if necessary for patientmanageme nt. Negative result s do not rule out COVID- 19 andshould not b e used as the sole basis for treatment orpat ient management deci sions, including infec tion controldecision s. Negative result s should be considered i n thecontext of a patient's recent exposure s, history and thepresence of clinical signs and symptoms consis tent withCOVID-19. T his test has not been FD A cleared or approved; th e test hasbeen authori zed by FDA under an Emerge ncy Use Authorization(E UA) for use by laborato ga certified under the CLIA thatmeet the re quirements to perform mode rate, high or waivedcomple xity tests. This qi t is authorized for use at thePoint of Car e (POC), i.e., in patien t care settingsoperati ng under a CLIA Certificat e of Waiver, Certifi kaila ofCompliance, o r Certificate of Accreditation. This test is only authori zed for the duration of thedeclaration that circumstances e xist justifying theauthorizatio n of emergency use o f in vitro diagnostic test sfor detection and/o r diagnosis of CO VID-19 under Zqleajj86 4(b)(1) of the Act, 21 U.S .C. 360bbb-3(b)(1), unless theauthorizatio n is terminated or r evoked sooner. COMPREHENSIVE METABOLIC [id number] 16:44:00 Test Item Value Reference Range Interpretation Comments SODIUM (test code = NA) 137 mEq/L 135-145 N POTASSIUM (test code = K) 3.7 mEq/L 3.5-5.0 N CHLORIDE (test code = CL) 104 mEq/L 100-115 N CARBON DIOXIDE (test code = CO2) 22 mEq/L 22-31 N ANION GAP (test code = GAP) 15.10 10-20 N GLUCOSE (test code = GLU) 135 mg/dL 65-110 H BLOOD UREA NITROGEN (test code = 8 mg/dL 7-18 N BUN) GLOMERULAR FILTRATION RATE (test 114 ml/min >60 N code = GFR) CREATININE (test code = CREAT) 0.6 mg/dL 0.5-1.0 N TOTAL PROTEIN (test code = PROT) 6.1 gm/dL 6.3-8.2 L ALBUMIN (test code = ALB) 2.9 gm/dL 3.4-4.8 L CALCIUM (test code = CA) 8.2 mg/dL 8.4-10.2 L BILIRUBIN TOTAL (test code = 0.3 mg/dL 0.2-1.0 N BILT) SGOT/AST (test code = AST) 17 units/L 15-37 N SGPT/ALT (test code = ALT) 24 units/L 12-78 N ALKALINE PHOSPHATASE TOTAL (test 103 units/L 46-116 N code = ALKP) UR PROTEIN/CREATININE [id number] 16:44:00 Test Item Value Reference Range Interpretation Comments UR PROTEIN RANDOM (test code = 10.0 mg/dL PROTU) UR CREATININE RANDOM (test 50.5 mg/dL code = CREATU) PROTEIN/CREATININE RATIO (test 198.0 mg/gcrea <200 code = P/CRATIO) CBC W/AUTO [id number] 16:10:00 Test Item Value Reference Range Interpretation Comments WHITE BLOOD CELL (test code = WBC) 8.2 K/mm3 6.5-12.3 N RED BLOOD CELL (test code = RBC) 3.48 M/mm3 3.51-4.69 L HEMOGLOBIN (test code = HGB) 10.8 g/dL 10.1-13.8 N HEMATOCRIT (test code = HCT) 30.8 % 32.5-41.8 L MEAN CELL VOLUME (test code = MCV) 88.5 fL 84.6-96.6 N MEAN CELL HGB (test code = MCH) 31.0 pg 27.3-33.9 N MEAN CELL HGB CONCETRATION (test 35.1 gm/dL 32.0-34.2 H code = MCHC) RED CELL DISTRIBUTION WIDTH (test 13.2 % 12.2-16.3 N code = RDW) PLATELET COUNT (test code = PLT) 150 K/mm3 134-363 N MEAN PLATELET VOLUME (test code = 11.5 fL 9.2-12.7 N MPV) NEUTROPHIL % (test code = NT%) 71.5 % 57.9-77.3 N LYMPHOCYTE % (test code = LY%) 21.0 % 14.5-29.7 N MONOCYTE % (test code = MO%) 5.8 % 3.6-10.2 N EOSINOPHIL % (test code = EO%) 0.5 % 0.0-3.0 N BASOPHIL % (test code = BA%) 0.5 % 0.1-0.9 N NEUTROPHIL # (test code = NT#) 5.9 K/mm3 LYMPHOCYTE # (test code = LY#) 1.7 K/mm3 MONOCYTE # (test code = MO#) 0.5 K/mm3 EOSINOPHIL # (test code = EO#) 0.04 K/mm3 BASOPHIL # (test code = BA#) 0.0 K/mm3 RBC MORPHOLOGY REQUIRED (test code NORMAL NORMAL = RBCM) PLATELET MORPHOLOGY REQUIRED (test NORMAL NORMAL code = PLTMR) HCG, QUANTITATIVE, [id number] 23:23:35 Test Item Value Reference Range Interpretation Comments BETA HCG (test See_Comment [Automated m essage] code = The system [employer] h [id number]) generated this result transmit jackie reference range : Non- fe male and male patien ts: <5 mIU/mL. The reference range was not used to interpret this result as normal/abnormal . MIL (test code Gestational Age ? ? = MIL) ?Range (mIU/mL) 1-10 ?Weeks ?[id number] Weeks ?14613-93987660-55 Weeks ?6999-59693095-11 Weeks ?3221-142786 Biotin has been reported to cause a negative bias, interpret results relative to patient's use of biotin. [facility] WITH [id number] 21:56:34 Test Item Value Reference Range Interpretation Comments WBC (test code = See_Comment [Automated 9482-2) message] The sy stem which generated this result transmitted reference range : 4.30 - 11.10 10*3/?L. The reference range was not used to interpret this result as normal/abnormal . RBC (test code = See_Comment [Automated 109-8) message] The sy stem which generated this [...] (test code = 37.5 fL 39.0-49.9 L 10925-2) RDW-CV (test code = 11.7 % 12.0-15.5 L 788-0) PLT (test code = See_Comment [Automated 707-3) message] The sy stem which generated this result transmitted reference range : 166 - 358 10*3/ ?L. The reference r denver was not used to interpret this result as normal/abnormal . MPV (test code = 10.7 fL 9.5-12.9 54693-1) NRBC/100 WBC (test See_Comment [Automat ed code = [id number]) message] The system which generated this result transmitted reference range : 0.0 - 10.0 /100 WBCs. The refer ence range was not u sed to interpret th is result as normal/abnormal . NRBC x10^3 (test code <0.01 See_Comment [Auto mated = [id number]) message] The s ystem which generated this result transmitted reference range : 10*3/?L. The reference range was not used to interpret this result as normal/abnormal . GRAN MAT (NEUT) % 59.0 % (test code = 770-8) IMM GRAN % (test code 0.50 % = 9783083137) LYMPH % (test code = 31.7 % 736-9) MONO % (test code = 6.0 % 5905-5) EOS % (test code = 2.0 % 713-8) BASO % (test code = 0.8 % 706-2) GRAN MAT x10^3(ANC) 5.09 10*3/uL 1.88-7.09 (test code = 3517924768) IMM GRAN x10^3 (test 0.04 10*3/uL 0.00-0.06 code = 5887563663) LYMPH x10^3 (test code 2.74 10*3/uL 1.32-3.29 = 731-0) MONO x10^3 (test code 0.52 10*3/uL 0.33-0.92 = 742-7) EOS x10^3 (test code = 0.17 10*3/uL 0.03-0.39 711-2) BASO x10^3 (test code 0.07 10*3/uL 0.01-0.07 = 704-7) Lab Interpretation Abnormal (test code = 85000-6) [facility] [id number] 21:21:53 Test Item Value Reference Range Interpretation Comments TEST (test code = 2106-3) Negative Iris SeyboldURINALYSIS NONAUTO W/O [id number] 20:49:00 Test Item Value Reference Range Interpretation Comments UD KETONES (test code = neg 5-160 583193) UD GLUCOSE (test code = neg 100-2000 947277) UD PROTEIN (test code = neg Trace - 2000 mg/dL 908741) UD LEUKOCYTES (test mod Trace - Large @ 2 code = 013177) min. UD NITRITE (test code = neg Neg. - Pos. @ 60 547260) sec. UD UROBILINOGEN (test 0.2 mg/dL 0.2-8 code = 017897) UD PH (test code = See_Comment [Automat ed 390811) message] The sy stem which generated this result transmitted reference range : 5.0 - 8.5 @ 60 sec.. The refer ence range was not u sed to interpret th is result as normal/abnormal . UD BLOOD (test code = neg Neg. - Large @ 60 573104) sec. UD SPECIFIC GRAVITY See_Comment [Automa jackie (test code = 636931) message ] The system which generated this result transmitted reference range : 1.000 - 1.030 @ 45 sec.. The refer ence range was not u sed to interpret th is result as normal/abnormal . UD BILIRUBIN (test code neg Neg. - Large @ 45 = 565536) sec. Lab Interpretation Abnormal (test code = 17302-6) [facility] [id number] 04:29:00 Test Item Value Reference Range Interpretation [...] 45-117 N TOTAL (test code = ALKP) [id number] 04:29:00 Test Item Value Reference Range Interpretation Comments PHOSPHOROUS (test code = PHOS) 3.9 MG/DL 2.5-4.9 N [id number] 04:29:00 Test Item Value Reference Range Interpretation Comments MAGNESIUM (test code = MAG) 1.8 MG/DL 1.8-2.4 N T4 [id number] 04:29:00 Test Item Value Reference Range Interpretation Comments T4 FREE (test code = T4F) 0.91 NG/DL 0.89-1.76 N THYROID STIMULATING [id number] 04:29:00 Test Item Value Reference Range Interpretation Comments THYROID STIMULATING HORMONE 3.020 mcIU/ML 0.340-4.820 N (test code = TSH) [id number] 03:32:00 Test Item Value Reference Range Interpretation [...] Completed by Nursing: NO- XR CHEST 1 [id number] 01:42:00 [facility] 1985 Age/S: 34 / F [address] Unit #: [id number] Loc: [place] [address] Phys: Clement Callejas MD Acct: [id number] Dis Date: Status: ADM IN PHONE #: [phone] Exam Date: 05/02/2019 013 FAX #: Reason: PALPITATIONS EXAMS: CPT: [id number] XR CHEST 1 V 46234 Fluoro Time: DAP (Gy m2): Air Kerma (mGy): LOCATION: Q15 HISTORY: 34-year-old female who presents with palpitations. COMMENT: A frontal chest radiograph was obtained at the bedside at 1:27 a.m. The lungs are clear and well-aerated. The cardiac silhouette, elvis, and mediastinum are withinnormal limits. The skeleton is intact, and the surrounding soft tissues are unremarkable. Cardiac monitoring leads are present. IMPRESSION: Unremarkable portable examination of the chest. at 0142 Reported and signed by: Chavez Washington M.D. CC: Evy CR; Clement Callejas MD PAGE 1 Signed Report Name: MARINA JASSO Blevins : 1985 Age/S: 34 / F [address] Unit #: [id number] Loc: [place] [address] Phys: Clement Pritchett MD Acct: [id number] Dis Date: Status: ADM IN PHONE #: [phone] Exam Date: 05/02/2019 013 FAX #: Reason: PALPITATIONS EXAMS: CPT: [id number] XR CHEST 1 V 73973 Fluoro Time: DAP (Gy m2): Air Kerma (mGy): (Continued) Technologist: Rodney Garcia RT(R); Ry Kincaid RT(R)(CT) Trnscb Date /Time: 05/02/2019 (141) [id number] Orig Print D/T: S: 05/02/2019 (144) PAGE 2 Signed [id number] 00:22:00 Test Item Value Reference Range Interpretation [...]
[2022-05-19] MEDS ORDERED: NA CHLORIDE 0.9% 1,000 ML ONE (09:28)
[2022-05-19 09:38] LABS: Absolute Lymphocytes (CBC) 1.8 K/uL (0.7-4.9); Lymphocytes % 24.9 % (15.3-44.8); MCV 85.7 fL (80-100); MPV 8.8 fL (7.6-11.3); RBC Red Blood Cell Count 4.78 M/uL (3.86-4.86)
[2022-05-19 10:00] LABS: Albumin 4.1 g/dL (3.4-5.0); Bilirubin Total 0.5 mg/dL (0.2-1.0); Protein, Total 7.7 g/dL (6.4-8.2)
[2022-05-19 10:09] LABS: SARS-CoV-2 Antigen Rapid Res Negative (Negative)
--- NOTE | 2022-05-19 11:31 | EDPHYS ---
Physician Documentation [facility] Name: Ambar Harding Age: 37 yrs Sex: Female : 1985 Arrival Date: 05/19/2022 Time: 09:00 Bed 19 Private MD: ED Physician Mc Ramirez HPI: 05/19 09:32 This 37 yrs old Female presents to ER via Ambulatory with complaints of Abdominal Pain. snw 09:32 The patient presents with abdominal pain in the lower abdomen. Onset: The snw symptoms/episode began/occurred suddenly, 4 day(s) ago, and became persistent. The symptoms do not radiate. Associated signs and symptoms: Pertinent positives: diarrhea, dysuria. The symptoms are described as achy. Severity of pain: At its worst the pain was moderate. It is unknown whether or not the patient has had similar symptoms in the past. pt was recently dx with E. coli urine infection. Pt has not started abx that were sent per PCP yesterday. [employer] EMERGENCY: 09:10 LMP N/A - Recent [facility] Historical: - Allergies: 09:10 PENICILLINS; 5 - PMHx: 09:10 gestational diabetes; mitral valve prolapse; [facility] - PSHx: 09:10 right knee; [facility] - Immunization history:: Adult Immunizations up to date. - Social history:: Smoking status: Patient denies any tobacco usage or history of. ROS: 09:35 Constitutional: Negative for fever, chills, and weight loss, Eyes: Negative for injury, snw pain, redness, and discharge, ENT: Negative for injury, pain, and discharge, Neck: Negative for injury, pain, and swelling, Cardiovascular: Negative for chest pain, palpitations, and edema, Respiratory: Negative for shortness of breath, cough, wheezing, and pleuritic chest pain, Back: Negative for injury and pain, : Negative for injury, bleeding, discharge, and swelling, MS/Extremity: Negative for injury and deformity, Skin: Negative for injury, rash, and discoloration, Neuro: Negative for headache, weakness, numbness, tingling, and seizure, Psych: Negative for depression, anxiety, suicide ideation, homicidal ideation, and hallucinations. 09:35 Abdomen/GI: Positive for abdominal pain, diarrhea, abdominal cramps. Exam: 09:30 Constitutional: This is a well developed, well nourished patient who is awake, alert, snw and in no acute distress. Head/Face: Normocephalic, atraumatic. Eyes: Pupils equal round and reactive to light, extra-ocular motions intact. Lids and lashes normal. Conjunctiva and sclera are non-icteric and not injected. Cornea within normal limits. Periorbital areas with no swelling, redness, or edema. ENT: Nares patent. No nasal discharge, no septal abnormalities noted. Tympanic membranes are normal and external auditory canals are clear. Oropharynx with no redness, swelling, or masses, exudates, or evidence of obstruction, uvula midline. Mucous membranes moist. Neck: Trachea midline, no thyromegaly or masses palpated, and no cervical lymphadenopathy. Supple, full range of motion without nuchal rigidity, or vertebral point tenderness. No Meningismus. Chest/axilla: Normal chest wall appearance and motion. Nontender with no deformity. No lesions are appreciated. Cardiovascular: Regular rate and rhythm with a normal S1 and S2. No gallops, murmurs, or rubs. Normal PMI, no JVD. No pulse deficits. Respiratory: Lungs have equal breath sounds bilaterally, clear to auscultation and percussion. No rales, rhonchi or wheezes noted. No increased work of breathing, no retractions or nasal flaring. Back: No spinal tenderness. No costovertebral tenderness. Full range of motion. Skin: Warm, dry with normal turgor. Normal color with no rashes, no lesions, and no evidence of cellulitis. MS/ Extremity: Pulses equal, no cyanosis. Neurovascular intact. Full, normal range of motion. Neuro: Awake and alert, GCS 15, oriented to person, place, time, and situation. Cranial nerves II-XII grossly intact. Motor strength 5/5 in all extremities. Sensory grossly intact. Cerebellar exam normal. Normal gait. 09:30 Abdomen/GI: Inspection: abdomen appears normal, Bowel sounds: normal, Palpation: mild abdominal tenderness, in the right lower quadrant. 09:30 Psych: Behavior/mood is pleasant, cooperative, anxious, Oriented to person, place, time. Vital Signs: 09:04 BP 149 / 103; Pulse 70; Resp 16; Temp 98.7; Pulse Ox 100% ; Weight 97.52 kg; Height 5 [facility] ft. 11 in. (180.34 cm); Pain 7/10; 09:39 BP 147 / 105; Pulse 74; Resp 16; Pulse Ox 99% ; mb8 10:18 BP 129 / 86; Pulse 66; Resp 16; Pulse Ox 99% on R/A; mb8 11:18 BP 137 / 84; Pulse 70; Resp 16; Pulse Ox 99% on R/A; mb8 09:04 Body Mass Index 29.99 (97.52 kg, 180.34 cm) [facility] MDM: 09:14 Patient medically screened. snw 11:32 Data reviewed: vital signs, nurses notes. Data interpreted: Pulse oximetry: on room air snw is 99 %. Interpretation: normal. Counseling: I had a detailed discussion with the patient and/or guardian regarding: the historical points, exam findings, and any diagnostic results supporting the discharge/admit diagnosis, the presence of at least one elevated blood pressure reading (>120/80) during this emergency department visit, lab results, radiology results, the need for outpatient follow up, for definitive care, to return to the emergency department if symptoms worsen or persist or if there are any questions or concerns that arise at home. Response to treatment: There is no appreciated change of the patient's symptoms at this time. Special discussion: Based on the patient's Hx, exam, and Dx evaluation, there is no indication for emergent surgery or inpatient Tx. It is understood by the patient/guardian that if the Sx's persist or worsen they need to return immediately for re-evaluation. I have referred the patient to see his PCP for further evaluation of high blood pressure. Based on the history and exam findings, there is no indication for further emergent testing or inpatient evaluation. I discussed with the patient/guardian the need to see the head of conservation for further evaluation of the symptoms. I discussed with the patient/guardian the need to see the primary care provider for further evaluation of the symptoms. 05/19 09:15 Order name: CBC with Diff; Complete Time: 09:44 snw 05/19 09:15 Order name: CMP; Complete Time: 10:06 snw 05/19 09:15 Order name: Lipase; Complete Time: 10:06 snw 05/19 09:15 Order name: SARS RAPID; Complete Time: 10:10 snw 05/19 09:15 Order name: Flu; Complete Time: 10:25 snw 05/19 11:51 Order name: Add On-Lab snw Administered Medications: 09:30 Drug: NS 0.9% 1000 ml Route: IV; Rate: 125 ml/hr; Site: right antecubital; mb8 11:50 Follow up: IV Status: Order to discontinue infusion mb8 Disposition: 17:30 Co-signature as Attending Physician, Mc Ramirez MD. rn Disposition Summary: 05/19/22 11:31 Discharge Ordered Location: Home snw Condition: Stable snw Diagnosis - Abdominal pain, unspecified snw Followup: snw - With: Emergency Department - When: As needed - Reason: Worsening of condition Followup: snw - With: Private Physician - When: 2 - 3 days - Reason: Recheck today's complaints, Continuance of care, Re-evaluation by your physician Discharge Instructions: - Discharge Summary Sheet snw - Abdominal Pain, Adult snw Forms: - Work release form snw - Medication Reconciliation Form snw - Thank You Letter snw - Antibiotic Education snw - Prescription Opioid Use snw Prescriptions: - promethazine 25 mg Oral Tablet - take 1 tablet by ORAL route every 6 hours As needed; 20 tablet; Refills: 0, snw Product Selection Permitted - dicyclomine 20 mg Oral Tablet - take 1 tablet by ORAL route 3 times per day; 21 tablet; Refills: 0, Product snw Selection Permitted Signatures: Dispatcher [employer] Lashell Lorenzo FNP-C COVER REMOVER-Csnw Mc Ramirez MD MD rn Rees, Jessica RN RN jh5 Scott Jacobson, RN RN mb8
--- NOTE | 2022-05-19 11:31 | ER ---
Nurse's Notes [facility] Name: Ambar Harding Age: 37 yrs Sex: Female : 1985 Arrival Date: 05/19/2022 Time: 09:00 Bed 19 Private MD: Diagnosis: Abdominal pain, unspecified Presentation: 05/19 09:04 Chief complaint: Patient states: i have a list of things going on; i know i have a jh5 bladder infection and my doctor called my medicine for that yesterday but i havent gotten them yet. I gave 8 week sago, I am having weird hormonal issues where im bleeding every week. Ill spot for a few days and then stop and i had to leave work yesterday due to terrible abdominal pain and I am worried there is also something wrong with my gallbladder cause this pain gets worse when i eat and i get nauseous with the abdominal pain. Coronavirus screen: Vaccine status: Patient reports receiving the 2nd dose of the covid vaccine. Client denies travel out of the [place] in the last 14 days. Ebola Screen: Patient negative for fever greater than or equal to 101.5 degrees Fahrenheit, and additional compatible Ebola Virus Disease symptoms Patient denies exposure to infectious person. Patient denies travel to an Ebola-affected area in the 21 days before illness onset. Initial Sepsis Screen: Does the patient meet any 2 criteria? No. Patient's initial sepsis screen is negative. Does the patient have a suspected source of infection? No. Patient's initial sepsis screen is negative. Risk Assessment: Do you want to hurt yourself or someone else? Patient reports no desire to harm self or others. Onset of symptoms was May 14, 2022. 09:04 Method Of Arrival: Ambulatory [facility] 09:04 Acuity: DEAN 3 5 Triage Assessment: 09:10 General: Appears uncomfortable, well groomed, well developed, well nourished, Behavior [facility] is calm, cooperative, appropriate for age. Pain: Complains of pain in abdomen. GI: Reports lower abdominal pain, upper abdominal pain, cramping, nausea. 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 - Social history:: Smoking status: Patient denies any tobacco usage or history of. Screenin:25 Abuse screen: Denies threats or abuse. Denies injuries from another. Nutritional mb8 screening: No deficits noted. Tuberculosis screening: No symptoms or risk factors identified. Fall Risk None identified. Assessment: 09:25 Cardiovascular: Chest pain is denied. Respiratory: No deficits noted. Breath sounds are mb8 clear bilaterally. GI: Bowel sounds present X 4 quads. Abd is soft and non tender Reports lower abdominal pain, cramping, diarrhea, nausea, Patient currently denies bloody stool, vomiting, Parent/caregiver reports the patient having. : Reports urinary frequency, dx yesterday with UTI, has not picked up her rx vaginal bleeding that is since givnig about 8 weeks ago, has not seen her OB. 10:20 Reassessment: Patient and/or family updated on plan of care and expected duration. Pain mb8 level reassessed. Patient is alert, oriented x 3, equal unlabored respirations, skin warm/dry/pink. Patient states feeling better. 11:17 Reassessment: Patient and/or family updated on plan of care and expected duration. Pain mb8 level reassessed. Patient is alert, oriented x 3, equal unlabored respirations, skin warm/dry/pink. Vital Signs: 09:04 BP 149 / 103; Pulse 70; Resp 16; Temp 98.7; Pulse Ox 100% ; Weight 97.52 kg; Height 5 [facility] ft. 11 in. (180.34 cm); Pain 7/10; 09:39 BP 147 / 105; Pulse 74; Resp 16; Pulse Ox 99% ; mb8 10:18 BP 129 / 86; Pulse 66; Resp 16; Pulse Ox 99% on R/A; mb8 11:18 BP 137 / 84; Pulse 70; Resp 16; Pulse Ox 99% on R/A; mb8 09:04 Body Mass Index 29.99 (97.52 kg, 180.34 cm) [facility] ED Course: 09:00 Patient arrived in ED. am2 09:08 Lashell Gaming FNP-C [facility] snw 09:08 Mc Ramirez MD is Attending Physician. snw 09:10 Triage completed. jh5 09:10 Arm band placed on right wrist. jh5 09:24 Scott Jacobson, RN is Primary Nurse. mb8 09:25 Patient has correct armband on for positive identification. Placed in gown. Bed in low mb8 position. Call light in reach. Side rails up X2. Client placed on continuous cardiac and pulse oximetry monitoring. NIBP monitoring applied. 09:30 No provider procedures requiring assistance completed. Inserted saline lock: 20 gauge mb8 in right antecubital area, using aseptic technique. ,using aseptic technique. by KJ Blood collected. 09:37 Flu Sent. kj1 09:37 SARS RAPID Sent. kj1 11:18 Awaiting re-evaluation by ER provider. mb8 11:53 IV discontinued, intact, bleeding controlled, No redness/swelling at site. Pressure mb8 dressing applied. Administered Medications: 09:30 Drug: NS 0.9% 1000 ml Route: IV; Rate: 125 ml/hr; Site: right antecubital; mb8 11:50 Follow up: IV Status: Order to discontinue infusion mb8 Medication: 09:38 VIS not applicable for this client. mb8 Outcome: 11:31 Discharge ordered by MD. snw 11:53 Discharged to home ambulatory. mb8 11:53 Condition: stable 11:53 Discharge instructions given to patient, Instructed on discharge instructions, follow up and referral plans. medication usage, Demonstrated understanding of instructions, follow-up care, medications, Prescriptions given X 2. 11:54 Patient left the ED. mb8 Signatures: Lashell Gaming, CHIEF NUCLEAR MEDICINE TECHNOLOGIST-C CHIEF NUCLEAR MEDICINE TECHNOLOGIST-Csnw Mary Rouse am2 Stacy Valderrama kj1 Sabrina Sánchez, RN RN 5 Scott Jacobson, RN RN mb8
[2022-05-19 12:16] VITALS: TEMP 98.7
[2022-05-19 12:18] VITALS: O2SAT 99
[2022-05-19 12:20] VITALS: BP 137/84
[2022-05-19 12:31] LABS: Albumin 4.2 g/dL (3.4-5.0); Bilirubin Direct 0.1 mg/dL (0-0.2); Bilirubin Total 0.5 mg/dL (0.2-1.0); Protein, Total 7.8 g/dL (6.4-8.2)
== END 2022-05-19 11:54 | disposition home or self-care (01) ==
LOC: ER 08:51
DX: R10.9 Unspecified abdominal pain (principal); I34.1 Nonrheumatic mitral (valve) prolapse; Z88.0 Allergy status to penicillin; Z20.822 Contact with and (suspected) exposure to COVID-19
CPT/HCPCS: 96361; 85025; 36415; 80076; 83690; 80053; 87804 ×2; 96360; 99284; 87811; J7030